=== PATIENT | female | born 1935 | race Caucasian/White ===

== ENCOUNTER → 2016-07-13 | Outpatient (CLI) | payer OTHER ==
[2016-07-13 12:19] LABS: BASO % 1.8 %; BASO ABS # 0.12 K/uL (0-0.2); COMPLETE YES; EOS % 3.2 %; HEMATOCRIT 48.5 % (37-47); IG% 0.2 %; LYMPH % 34.1 %; LYMPH ABS # 2.21 K/uL (1.2-3.4); MEAN CELL VOLUME 94.9 fL (80-100); MEAN CORPUSCULAR HEMOGLOBIN 31.1 pg (25-34); MEAN CORPUSCULAR HGB CONC 32.8 g/dl (32-36); MEAN PLATELET VOLUME 10.6 fL (7.4-10.4); MONO % 8.5 %; NEUT % 52.2 %; PLATELET COUNT 238 K/uL (130-400); RED BLOOD COUNT 5.11 M/uL (4.2-5.4); WHITE BLOOD COUNT 6.49 K/uL (4.8-10.8)
[2016-07-13 12:21] LABS: CHLORIDE 107 mmol/L (98-107); POTASSIUM 4.8 mmol/L (3.5-5.1); SODIUM 142 mmol/L (136-145)
[2016-07-13 12:33] LABS: URINE APPEARANCE CLEAR (CLEAR); URINE BILIRUBIN NEG (NEG); URINE COLOR YELLOW; URINE NITRITE NEG (NEG); URINE SPECIFIC GRAVITY 1.012 (1.000-1.030); UROBILINOGEN NEG (NEG); ZZUR CULT IF INDIC CLEAN CATCH NO
[2016-07-13 12:39] LABS: MANUAL MICROSCOPIC REQUIRED? NO; REVIEW REQ? NO
[2016-07-13 13:06] LABS: ALT/SGPT 31 U/L (12-78); AST/SGOT 20 U/L (15-37); BLOOD UREA NITROGEN 12 mg/dl (7-18); BUN/CREATININE RATIO 18.2 (10-20); CALCIUM 10.2 mg/dl (8.5-10.1); CARBON DIOXIDE 29 mmol/L (21-32); CHOLESTEROL 182 mg/dl (0-200); CREATININE 0.67 mg/dl (0.60-1.20); GLUCOSE 102 mg/dl (70-99)
[2016-07-13 13:12] LABS: ALKALINE PHOSPHATASE 68 U/L (45-117); CHOLESTEROL/HDL RATIO 2.2; HDL CHOLESTEROL 84 mg/dl; LDL CHOLESTEROL CALCULATED 77 mg/dl; TRIGLYCERIDES 105 mg/dl (0-150); VERY LOW DENSITY LIPOPROT CALC 21 mg/dl
[2016-07-13 13:17] LABS: ESTIMATED AVERAGE GLUCOSE 108 mg/dl; HA1C FLAG Normal (Normal)
--- NOTE | 2016-07-18 08:29 | CODING QUERY MEDICAL NECESSITY ---
SUPPORTING DIAGNOSIS NEEDED Dr. Massey, A supporting diagnosis is required for the test/procedure performed on this patient in order for us to be reimbursed by the patient's insurance. Please provide a supporting diagnosis for the following test/procedure listed below next to the test name along with your signature. *If there is no additional diagnosis for this patient that would support the following test/procedure please document that below next to the test/procedure. Test(s)/Procedure(s) that require a supporting diagnosis: * [id number] GLYCATED HEMOGLOBIN DIAGNOSIS: DATE OF SERVICE: 07/13/16 Provider Signature: Date: Thank you Alex[facility] Information Management Once completed, please kindly fax back to [phone] For questions please call [phone]
== END | disposition home or self-care (01) ==
LOC: C.LABBFT 07:44
PROVIDERS: ATTEND Internal Medicine
DX: R73.03 Prediabetes (principal); E78.5 Hyperlipidemia, unspecified

== ENCOUNTER → 2017-07-25 | Outpatient (CLI) | payer OTHER ==
[2017-07-25 12:50] LABS: BASO % 2.1 %; BASO ABS # 0.12 K/uL (0-0.2); EOS % 4.1 %; EOS ABS # 0.23 K/uL (0-0.5); HEMATOCRIT 46.7 % (37-47); HEMOGLOBIN 15.5 g/dL (12.0-16.0); IG# 0.01 K/uL (0.00-0.02); LYMPH % 31.8 %; MEAN CELL VOLUME 94.7 fL (80-100); MEAN CORPUSCULAR HEMOGLOBIN 31.4 pg (25-34); MEAN CORPUSCULAR HGB CONC 33.2 g/dl (32-36); MEAN PLATELET VOLUME 10.1 fL (7.4-10.4); MONO % 7.1 %; NEUT % 54.7 %; PLATELET COUNT 213 K/uL (130-400); RED CELL DISTRIBUTION WIDTH CV 12.7 % (11.5-14.5); RED CELL DISTRIBUTION WIDTH SD 44.1 fL (36.4-46.3); WHITE BLOOD COUNT 5.66 K/uL (4.8-10.8)
[2017-07-25 13:33] LABS: HEMOGLOBIN A1C 5.3 % (4.5-5.6)
[2017-07-25 15:20] LABS: BLOOD UREA NITROGEN 11 mg/dl (7-18); CALCIUM 9.4 mg/dl (8.5-10.1); CARBON DIOXIDE 30 mmol/L (21-32); CHOLESTEROL 165 mg/dl (0-200); GLUCOSE 102 mg/dl (70-99); POTASSIUM 4.3 mmol/L (3.5-5.1); SODIUM 141 mmol/L (136-145)
[2017-07-25 15:30] LABS: LDL CHOLESTEROL CALCULATED 67 mg/dl
== END | disposition home or self-care (01) ==
LOC: C.LABBFT 07:58
PROVIDERS: ATTEND Internal Medicine
DX: R73.03 Prediabetes (principal); E78.5 Hyperlipidemia, unspecified; M81.0 Age-related osteoporosis without current pathological fracture

== ENCOUNTER 2022-03-05 09:41 | Inpatient (IN) ==
[2022-03-05] MEDS ORDERED: SODIUM CHLORIDE 0.9% 1000ML 1,000 ML IV SCH (10:30)
[2022-03-05 10:45] LABS: Basophils # (auto) 0.01 K/uL (0-0.2); Basophils % (auto) 0.1 %; Hematocrit (blood only) 43.9 % (34.1-44.9); Hemoglobin 14.8 g/dl (12.0-16.0); Immature Granulocytes # (auto) 0.08 K/uL (0.00-0.02); Immature Granulocytes % (auto) 0.6 %; Lymphocytes # (auto) 0.74 K/uL (1.2-3.4); Lymphocytes % (auto) 5.2 %; Mean Corpuscular Hemoglobin 31.6 pg (25.0-34.0); Mean Corpuscular Hgb Conc 33.7 g/dL (32.0-36.0); Mean Corpuscular Volume 93.8 fL (80.0-100.0); Mean Platelet Volume 10.3 fL (9.4-12.3); Monocytes # (auto) 1.35 K/uL (0.24-0.82); Monocytes % (auto) 9.5 %; Neutrophils # (auto) 12.08 K/uL (1.4-6.5); Neutrophils % (auto) 84.6 %; Platelet Count 217 K/uL (130-400); RDW Coefficient of Variation 12.5 % (11.5-14.5); RDW Standard Deviation 43.2 fL (36.4-46.3); Red Blood Count 4.68 M/uL (3.93-5.22); White Blood Count 14.26 K/ul (4.8-10.8)
[2022-03-05 10:57] LABS: Albumin Globulin Ratio 1.1 (0.9-2); Albumin Level 3.9 gm/dl (3.4-5.0); Bilirubin,Total 1.2 mg/dl (0.2-1.0); Calcium 11.6 mg/dl (8.5-10.1); Creatinine Clr Calc Pharmacy 58.4 ml/min; Est GFR (Non-African American) 83.7 ml/min; Globulin 3.6 gm/dl (2.5-4.0); Potassium 3.5 mmol/L (3.5-5.1); Total Protein 7.5 gm/dl (6.0-8.3)
--- NOTE | 2022-03-05 11:01 | CT Scan Report ---
CT head/brain wo con CLINICAL HISTORY: ams Technique: Contiguous axial CT images of the head were acquired from the base of the skull to the juan antonio nicholas without intravenous contrast administration. Images were viewed in brain, subdural and bone [facility]. Automated dose lowering techniques and/or adjustment according to patient size were utilized for this exam. Comparison: Comparison is made to CT head 07/10/2012 Findings: Areas of decreased attenuation are present in the periventricular and subcortical white matter bilate rally consistent with small vessel ischemic disease. Generalized cerebral atrophy with commensurate e nlargement of the ventricles, sulci, and cisterns is also present. There is no acute intracranial hem orrhage or evidence of acute territorial infarction. No shift of the midline structures, mass effect, or extra-axial abnormalities are shown. Atherosclerotic calcifications are present in the intracran ial segments of the internal carotid arteries. Imaged portions of the paranasal sinuses and mastoid air cells are clear. The orbits appear normal. There are no acute fractures of the calvaria or scalp swelling. Impression: No acute intracranial hemorrhage, no evidence of acute territorial infarction or other acute intracra nial disease process. ACT 112: Negative or not required by law. Electronically signed by: Tyrone Stewart M.D. 03/05/2022 10:58 AM
[2022-03-05 11:05] LABS: Partial Thromboplastin Ratio 0.9; Partial Thromboplastin Time 24.2 Seconds (21.0-31.0); Prothrombin Time 10.3 Seconds (9.0-12.0)
[2022-03-05 11:22] LABS: Influenza A virus by PCR Negative (Neg); Influenza B virus by PCR Negative (Neg); RSV by PCR Negative (Neg); SARS CoV2 RNA(COVID-19) Ceph NEGATIVE (Negative)
--- NOTE | 2022-03-05 11:30 | XRay Report ---
XR chest 1V portable CLINICAL HISTORY: fall, pain TECHNIQUE: Single frontal radiograph of the chest was obtained. Comparison: None available at the time of this dictation. FINDINGS: No lines and tubes are seen. Cardiomegaly is noted. Bibasilar midline shift is seen. Airspace opaciti es in the left lower lung. There is likely left hemidiaphragmatic elevation. No evidence of pleural e ffusion or pneumothorax. IMPRESSION: Elevation of the left hemidiaphragm with likely associated atelectasis. Cardiomegaly is seen. ACT 112: Negative or not required by law. Electronically signed by: Tyrone Stewart M.D. 03/05/2022 11:28 AM
--- NOTE | 2022-03-05 11:36 | XRay Report ---
XR hip LT 2V w pelvis CLINICAL HISTORY: pain fall TECHNIQUE: 2 views of the left hip and single frontal view of the pelvis were obtained. Comparison: None available at the time of this dictation. FINDINGS: There is a fracture of the left femoral neck with mild overriding of fragments. Degenerative changes are seen in the hip joint. Soft tissue swelling is seen. IMPRESSION: Fracture of the left femoral neck with surrounding soft tissue swelling. ACT 112: Negative or not required by law. Electronically signed by: Tyrone Stewart M.D. 03/05/2022 11:34 AM
[2022-03-05 12:00] LABS: Appearance Urine Clear (Clear); Bacteria Urine Automated Negative (Negative); Bilirubin Urine Negative (Negative); Blood Urine Negative (Negative); Cast Urine Automated 0 /lpf (0-5); Color Urine Yellow; Glucose Urine UA Trace (Negative); Ketones Urine 1+ (Negative); Leukocyte Esterase Urine Negative (Negative); Nitrite Urine Negative (Negative); Protein Urine 1+ (Negative); RBC Urine Automated 0-4 /hpf (0-4); Specific Gravity Urine 1.017 (1.000-1.030); Urobilinogen Urine Negative (Negative); WBC Urine Automated 0 /hpf (0-5); pH Urine 6.5 (4.5-7.5)
[2022-03-05] MEDS ORDERED: ACETAMINOPHEN 1,000 MG/100 ML VIAL IV STA (12:09)
--- NOTE | 2022-03-05 12:39 | History & Physical Report ---
Date of Service March 05, 2022 Assessment & Plan (1) Fracture of femoral neck, left: Plan: Patient has a comminuted left femoral neck fracture. Patient will be evaluated Dr. Bryant. I personally spoke with Dr. Bryant he feels the patient may not be able to get onto the OR schedule till March 07. Patient will have pain control with Tylenol scheduled she will be offered morphine and oxycodone if pain is severe she will be on vitamin D to be kept n.p.o. at midnight March 06 for possible surgical correction of her fracture SCDs for DVT prevention SAMMI hose to be applied Patient does have leukocytosis and this may be stress related but will check a urine culture she denies any urinary symptoms on presentation and a urine analysis is not significantly abnormal (2) Heart murmur: Plan: Heart murmur noted in PCP note echocardiogram from October 11, 2021 shows mild mitral regurg preserved ejection fraction Given the patient was shoveling snow prior to this event denies any chest pain or shortness of breath I do believe she is got good functional status and should be risk optimized for surgery (3) Dyslipidemia: Plan: Patient is on Zocor this is held during her hospital stay History of Present Illness Primary Care Provider: Mason Massey MD 87-year-old female who reportedly shoveled her walker in driveway then walked around to the back of her house to check how much that was on her patio at which time she turned and slipped on the ice and fell striking her left side on the ground. She sustained a left femoral neck fracture. She denies having any presyncopal symptoms or hitting her head. She did have a CT scan of her head which was unremarkable. Family is at the bedside and says that she has been saying something is may be exhibiting some mild confusion which is unusual for her. There is no contusions on her head although a concussion cannot be ruled out if it was a violent fall. She does have a concentrated urine initial urine analysis is not suspicious of a UTI though she does have a white count of 14,000 and a urine culture will be sent In the ER she is negative for viral illnesses she is not anemic she does have mild elevation of her calcium although this is not usual by her history subsequently this may be dehydration or could be possibly causing some of her confusion. We will hydrate her and see what her calcium is on recheck Allergies Allergy/AdvReac Type Severity Reaction Status Date / Time No Known Drug Allergies Allergy Verified 11/04/21 09:04 Home Medications Medication Instructions Recorded Confirmed Type cholecalciferol (vitamin D3) 50 2,000 unit PO QDD 07/31/18 11/04/21 History mcg (2,000 unit) capsule glucosamine sulfate 500 mg capsule 500 mg PO QAM 07/31/18 11/04/21 History omega-3 acid ethyl esters 1 gram 1 cap PO BID 07/31/18 11/04/21 History capsule aspirin 81 mg tablet,delayed 81 mg PO QAM 04/23/19 11/04/21 History release (Luis A Low Dose Aspirin) carboxymethylcellulose sodium 0.25 1 drp ophthalmic (eye) BID 04/23/19 11/04/21 History % eye drops in a dropperette (TheraTears) multivitamin 1 tab PO QAM 04/23/19 11/04/21 History plant stanol janine 450 mg tablet 450 mg PO QDD 04/23/19 11/04/21 History (Cholest Off) vit C 250 mg-vit E 90 mg-zinc 40 1 tab PO BID 04/23/19 11/04/21 History mg-copper 1 be-enuzbw-qkhaoc capsule (PreserVision AREDS-2) simvastatin 20 mg tablet 20 mg PO HS #90 tabs 05/21/21 11/04/21 Rx Past Med/Surg History Medical History Dyslipidemia Osteoporosis Pre-diabetes Surgical History History of left cataract surgery History of tonsillectomy Hx of removal of cyst Family History Coronary heart disease Mother Heart disease Mother Myocardial infarction Mother Breast cancer Mother Hypertension Mother Denies family history of Ovarian cancer Prostate cancer Diabetes Lung cancer Colorectal cancer Social History Smoking Status: Never smoker Second Hand Exposure: No; Hx Alcohol Use: No Hx Substance Use: No Preferred Language: Slovak Communication Ability: Effective Visual Impairment: No Limitations Hearing Ability: Normal Beliefs That Will Affect Care: None marital status: / Current Living Situation: Alone current occupational status: retired current occupation: used to be food checkers and cashiers supervisor at [employer] Feels Safe at Home: Yes Childhood Exposure to Second-Hand Smoke: Yes caffeine: Yes during the past year weight has: remained stable Dental Care, Regularly: Yes Physical Activity Frequency: Daily Seatbelt Use: always Sunscreen Use: Yes Assistive Devices: Denture - Upper and Glasses Review of Systems Review of Systems: Moderate distress and fatigue no headache, no visual changes no speech or swallowing issues no chest pain, pressure or palpitations no shortness of breath, cough or wheezes no abdominal pain, nausea or vomiting, diarrhea or constipation no dysuria, hematuria or frequency Left hip pain shortening and external rotation no back pain, CVA tenderness or radicular pain no bruising, bleeding or rashes no focal signs of weakness or numbness or altered sensation no complaints of anxiety or depression.. Physical Exam Physical Exam: The patient appeared well nourished and normally developed. Vital signs as documented. Head exam is normocephalic atraumatic there is no contusions abrasions Neck is without JVD, thyromegaly, or carotid bruits. Lungs are clear to auscultation, no focal loss of breath sounds Cardiac exam, Rhythm is regular.. No murmurs, rubs or gallops. Abdominal exam reveals normal bowel sounds, soft non tender, no masses Extremities are nonedematous and both pedal pulses are present Left leg is shortened and externally rotated painful to move point tenderness in the left hip Neurologic exam is alert and oriented x3 although family says she is saying some nonsensical statements at times, no focal loss of strength or sensation although affected limb was not tested aggressively Skin is without bruises or rashes Psychologically is without concerns for anxiety or depression. Orientation is intact to my evaluation. Results & Data Results & Data ([facility]) Vital Signs (Past 12 Hours) Vital Signs Temp Pulse Resp BP Pulse Ox O2 Del Method 03/05/22 11:30 108 H 23 03/05/22 11:30 142/93 H 03/05/22 11:00 78 18 90 03/05/22 11:00 147/83 H 03/05/22 10:48 102 H 22 92 03/05/22 10:48 148/103 H 03/05/22 10:30 111 H 22 03/05/22 10:00 103 H 21 03/05/22 09:51 107 H 20 03/05/22 09:53 98.1 F 110 H 18 181/118 H 94 Room Air Diagnostic Findings Hip/Pelvis X-Ray 03/05/22 10:28 XR hip LT 2V w pelvis CLINICAL HISTORY: pain fall TECHNIQUE: 2 views of the left hip and single frontal view of the pelvis were obtained. Comparison: None available at the time of this dictation. FINDINGS: There is a fracture of the left femoral neck with mild overriding of fragments. Degenerative changes are seen in the hip joint. Soft tissue swelling is seen. IMPRESSION: Fracture of the left femoral neck with surrounding soft tissue swelling. ACT 112: Negative or not required by law. Electronically signed by: Tyrone Stewart M.D. 03/05/2022 11:34 AM Chest X-Ray 03/05/22 10:30 XR chest 1V portable CLINICAL HISTORY: fall, pain TECHNIQUE: Single frontal radiograph of the chest was obtained. Comparison: None available at the time of this dictation. FINDINGS: No lines and tubes are seen. Cardiomegaly is noted. Bibasilar midline shift is seen. Airspace opacities in the left lower lung. There is likely left hemidiaphragmatic elevation. No evidence of pleural effusion or pneumothorax. IMPRESSION: Elevation of the left hemidiaphragm with likely associated atelectasis. Cardiomegaly is seen. ACT 112: Negative or not required by law. Electronically signed by: Tyrone Stewart M.D. 03/05/2022 11:[address] 03/05/22 10:30 CT head/brain wo con CLINICAL HISTORY: ams Technique: Contiguous axial CT images of the head were acquired from the base of the skull to the vertex without intravenous contrast administration. Images were viewed in brain, subdural and bone windows. Automated dose lowering techniques and/or adjustment according to patient size were utilized for this exam. Comparison: Comparison is made to CT head 07/10/2012 Findings: Areas of decreased attenuation are present in the periventricular and subcortical white matter bilaterally consistent with small vessel ischemic disease. Generalized cerebral atrophy with commensurate enlargement of the ventricles, sulci, and cisterns is also present. There is no acute intracranial hemorrhage or evidence of acute territorial infarction. No shift of the midline structures, mass effect, or extra-axial abnormalities are shown. Atherosclerotic calcifications are present in the intracranial segments of the internal carotid arteries. Imaged portions of the paranasal sinuses and mastoid air cells are clear. The orbits appear normal. There are no acute fractures of the calvaria or scalp swelling. Impression: No acute intracranial hemorrhage, no evidence of acute territorial infarction or other acute intracranial disease process. ACT 112: Negative or not required by law. Electronically signed by: Tyrone Stewart M.D. 03/05/2022 10:58 AM ECG Additional Comments: EKG shows sinus tachycardia PG Care Time/CCT Total # of Minutes Spent Total Time Spent with Patient: Total time spent is greater than 50% in coordination of care (as documented) at patient's floor/unit and/or counseling patient: Coding Level of Care Code 02505 Initial Inpt Care Lvl 3 Diagnoses Fracture of femoral neck, left S72.002A Heart murmur R01.1 Dyslipidemia E78.5
--- NOTE | 2022-03-05 13:00 | Electrocardiogram Report ---
Test Reason : Blood Pressure : / mmHG Vent. Rate : 106 BPM Atrial Rate : 106 BPM P-R Int : 152 ms QRS Dur : 082 ms QT Int : 294 ms P-R-T Axes : 070 -23 057 degrees QTc Int : 390 ms Poor data quality, interpretation may be adversely affected Sinus tachycardia with Premature atrial complexes Abnormal ECG No previous ECGs available Confirmed by Orlando Harman ([id number]) on 03/05/2022 1:00:05 PM Referred By: REFERRED SELF Confirmed By:Orlando Harman
[2022-03-05] MEDS ORDERED: oxyCODONE HCL IR 5 MG TAB (IMMEDIATE RELEASE) PO PRN (14:55)
[2022-03-05] MEDS ORDERED: MoRPHine SULFATE 4 MG/ML 1 ML CARP\\VIAL IV PRN (14:55)
[2022-03-05] MEDS ORDERED: MoRPHine SULFATE 2 MG/ML CARP IV PRN (14:55)
[2022-03-05] MEDS: SODIUM CHLORIDE 0.9% 1000ML 1,000 ML IV SCH ×2 (16:45→23:17)
[2022-03-05] MEDS: ACETAMINOPHEN 500 MG TAB PO SCH ×2 (16:45→21:09)
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
[2022-03-05] MEDS ORDERED: NON-FORMULARY MEDICATION (Vit C,E-Zn-Coppr-Lutein-Zeaxan [Preservision Areds-2] 250-200-40 PO SCH (21:00)
[2022-03-05] MEDS: ARTIFICIAL TEARS OP SCH (21:09)
[2022-03-06 07:19] LABS: Albumin Globulin Ratio 1.1 (0.9-2); Albumin Level 3.2 gm/dl (3.4-5.0); BUN Creatinine Ratio 43.8 (10-20); Calcium 10.5 mg/dl (8.5-10.1); Creatinine Clr Calc Pharmacy 65.7 ml/min; Est GFR (African American) 100.8 ml/min; Globulin 2.8 gm/dl (2.5-4.0); Potassium 3.7 mmol/L (3.5-5.1)
[2022-03-06] MEDS ORDERED: CHOLECALCIFEROL 400 UNITS 10 MCG TAB PO SCH (09:00)
[2022-03-06] MEDS: ACETAMINOPHEN 500 MG TAB PO SCH ×3 (09:08→20:21)
[2022-03-06] MEDS: ARTIFICIAL TEARS OP SCH ×2 (09:09→20:21)
[2022-03-06] MEDS: SODIUM CHLORIDE 0.9% 1000ML 1,000 ML IV SCH ×2 (09:25→19:12)
[2022-03-06 10:40] LABS: Phosphorus 1.4 mg/dl (2.5-4.9)
[2022-03-06] MEDS: MULTIVITAMIN TAB PO SCH (10:42)
--- NOTE | 2022-03-06 11:07 | Communication Note ---
Date of Service: March 06, 2022 Pt imaging reviewed, has a displaced left femoral neck fracture. Pt booked for Left hip hemiarthroplasty on 03/07 am. NPO after MN on 03/06.
--- NOTE | 2022-03-06 12:12 | Orthopedic Consultation ---
Date of Consultation March 06, 2022 Assessment & Plan (1) Fracture of femoral neck, left: Patient has a displaced left femoral neck fracture. Treatment options discussed with the patient. Case discussed with Dr. Bryant who personally reviewed patient's imaging. Recommend surgical intervention. Risk, benefits, alternatives to surgery discussed with the patient and she would like to proceed. Plan for left hip bipolar hemiarthroplasty by Dr. Bryant of [facility]. He will be seeing the patient as well prior to surgical intervention. Plan for OR tomorrow morning. Patient will be n.p.o. after midnight. Thank you for this consultation. History of Present Illness Reason for Consultation: Left femoral neck fracture Requesting Physician: Dr. Gonzales Attending Physician: Lb Hall History of Present Illness Pleasant 87-year-old female past medical history significant for osteoporosis, dyslipidemia, mild mitral valve regurgitation who slipped and fell on her patio landing on her left side. She presented to the emergency department via ambulance and was found to have a displaced left femoral neck fracture. We have been asked to evaluate the patient for surgical management. Patient denies chest pain, shortness of breath, dizziness/lightheadedness, headaches, nausea/vomiting/diarrhea. Pain is currently well controlled. Allergies Allergy/AdvReac Type Severity Reaction Status Date / Time No Known Drug Allergies Allergy Verified 11/04/21 09:04 Home Medications Medication Instructions Recorded Confirmed Type cholecalciferol (vitamin D3) 50 2,000 unit PO QDD 07/31/18 11/04/21 History mcg (2,000 unit) capsule glucosamine sulfate 500 mg capsule 500 mg PO QAM 07/31/18 11/04/21 History omega-3 acid ethyl esters 1 gram 1 cap PO BID 07/31/18 11/04/21 History capsule aspirin 81 mg tablet,delayed 81 mg PO QAM 04/23/19 11/04/21 History release (Luis A Low Dose Aspirin) carboxymethylcellulose sodium 0.25 1 drp ophthalmic (eye) BID 04/23/19 11/04/21 History % eye drops in a dropperette (TheraTears) multivitamin 1 tab PO QAM 04/23/19 11/04/21 History plant stanol janine 450 mg tablet 450 mg PO QDD 04/23/19 11/04/21 History (Cholest Off) vit C 250 mg-vit E 90 mg-zinc 40 1 tab PO BID 04/23/19 11/04/21 History mg-copper 1 [id number] capsule (PreserVision AREDS-2) simvastatin 20 mg tablet 20 mg PO HS #90 tabs 05/21/21 11/04/21 Rx Patient History Medical History Dyslipidemia Osteoporosis Pre-diabetes Surgical History History of left cataract surgery History of tonsillectomy Hx of removal of cyst RIGHT ARM Family History Mother Coronary heart disease Breast cancer Myocardial infarction Heart disease Hypertension Denies family history of Ovarian cancer Prostate cancer Diabetes Lung cancer Colorectal cancer Social History Smoking Status: Never smoker Second Hand Exposure: No; Do You Dip or Chew Tobacco: No; Tobacco Cessation Education Requested by Patient: No Hx Alcohol Use: No Hx Substance Use: No Preferred Language: Telugu Communication Ability: Effective Visual Impairment: No Limitations Hearing Ability: Normal Fish Dressing Machine Feeder Required: No Beliefs That Will Affect Care: None marital status: / Current Living Situation: Alone current occupational status: retired current occupation: used to be network intern at [employer] Other Information That Helps Us Care for You: No Feels Safe at Home: Yes Safety Concerns: Feels Safe At This Time Childhood Exposure to Second-Hand Smoke: Yes caffeine: Yes during the past year weight has: remained stable Dental Care, Regularly: Yes Physical Activity Frequency: Daily Seatbelt Use: always Sunscreen Use: Yes Assistive Devices: Denture - Upper and Glasses Review of Systems Review of Systems: All systems reviewed & are unremarkable except as noted in HPI & below Physical Exam Constitutional: WD/WN, vitals as above Eyes: PERRL, conjunctivae normal, anicteric sclerae Neck: trachea midline, no thyromegaly Respiratory: normal respiratory effort; no respiratory distress Cardiovascular: Rate/Rhythm: regular rate and regular rhythm Extremities: no edema Musculoskeletal: Left leg: Leg is shortened and externally rotated. Her toes are mobile with sensation and neurovascular status intact distally. No calf tenderness. No tenderness about her knee. No pain with gentle knee range of motion. She does have pain with gentle logroll. Compartments are soft and compressible, nontender. Mild tenderness overlying proximal femur. She has mild bruising anterior medial thigh. Skin: no rashes, warm and dry Neurologic: normal touch/pain/proprioception Psychiatric: A+Ox3, euthymic affect Results & Data ([facility]) Vital Signs (Past 12 Hours) Vital Signs Temp Pulse Resp BP Pulse Ox O2 Del Method 03/06/22 08:02 37.0 C 98 H 16 152/73 H 90 Room Air 03/06/22 02:18 37.2 C 100 H 18 131/77 90 Room Air 03/06/22 01:16 36.9 C 102 H 20 128/69 90 Room Air Laboratory Results Lab Results 03/05/22 03/05/22 03/05/22 Range/Units 10:10 10:10 10:10 WBC 14.26 H (4.8-10.8) K/ul RBC 4.68 (3.93-5.22) M/uL Hgb 14.8 (12.0-16.0) g/dl Hct 43.9 (34.1-44.9) % MCV 93.8 (80.0-100.0) fL MCH 31.6 (25.0-34.0) pg MCHC 33.7 (32.0-36.0) g/dL RDW Std Deviation 43.2 (36.4-46.3) fL RDW Coeff of Aiyana 12.5 (11.5-14.5) % Plt Count 217 (130-400) K/uL MPV 10.3 (9.4-12.3) fL Immature Gran % (Auto) 0.6 % Neut % (Auto) 84.6 % Lymph % (Auto) 5.2 % [place] % (Auto) 9.5 % Eos % (Auto) 0.0 % Baso % (Auto) 0.1 % Neut # (Auto) 12.08 H (1.4-6.5) K/uL Lymph # (Auto) 0.74 L (1.2-3.4) K/uL [place] # (Auto) 1.35 H (0.24-0.82) K/uL Eos # (Auto) 0.00 (0-0.50) K/uL Baso # (Auto) 0.01 (0-0.2) K/uL Immature Gran # (Auto) 0.08 H (0.00-0.02) K/uL PT 10.3 (9.0-12.0) Seconds INR 1.0 (0.9-1.1) APTT 24.2 (21.0-31.0) Seconds PTT Ratio 0.9 Sodium 143 (136-145) mmol/L Potassium 3.5 (3.5-5.1) mmol/L Chloride 104 (98-107) mmol/L Carbon Dioxide 29 (21-32) mmol/L Anion Gap 10 (3-11) BUN 20 (6-23) mg/dl Creatinine 0.54 L (0.6-1.2) mg/dl Est Cr Clr Drug Dosing 58.4 ml/min Est GFR ( Amer) 97.0 ml/min Est GFR (Non-Af Amer) 83.7 ml/min BUN/Creatinine Ratio 37.0 H (10-20) Glucose 164 H (70-99(Fasting)) mg/dl Calcium 11.6 H (8.5-10.1) mg/dl Phosphorus (2.5-4.9) mg/dl Total Bilirubin 1.2 H (0.2-1.0) mg/dl AST 76 H (13-39) U/L ALT 46 (7-52) U/L Alkaline Phosphatase 85 (34-104) U/L Total Creatine Kinase 1168 H (26-192) U/L Total Protein 7.5 (6.0-8.3) gm/dl Albumin 3.9 (3.4-5.0) gm/dl Globulin 3.6 (2.5-4.0) gm/dl Albumin/Globulin Ratio 1.1 (0.9-2) PTH Intact (12.0-88.0) pg/ml Urine Color Urine Appearance (Clear) Urine pH (4.5-7.5) Ur Specific Felt (1.000-1.030) Urine Protein (Negative) Urine Glucose (UA) (Negative) Urine Ketones (Negative) Urine Blood (Negative) Urine Nitrite (Negative) Urine Bilirubin (Negative) Urine Urobilinogen (Negative) Ur Leukocyte Esterase (Negative) Urine WBC (Auto) (0-5) /hpf Urine RBC (Auto) (0-4) /hpf U Hyaline Cast (Auto) (0-5) /lpf U Epithel Cells (Auto) (0-5) /lpf Urine Bacteria (Auto) (Negative) SARS-CoV-2 (PCR) (Negative) Influenza Type A (PCR) (Neg) Influenza Type B (PCR) (Neg) RSV (RT-PCR) (Neg) 03/05/22 03/05/22 03/06/22 Range/Units 10:35 11:40 06:44 WBC (4.8-10.8) K/ul RBC (3.93-5.22) M/uL Hgb (12.0-16.0) g/dl Hct (34.1-44.9) % MCV (80.0-100.0) fL MCH (25.0-34.0) pg MCHC (32.0-36.0) g/dL RDW Std Deviation (36.4-46.3) fL RDW Coeff of Aiyana (11.5-14.5) % Plt Count (130-400) K/uL MPV (9.4-12.3) fL Immature Gran % (Auto) % Neut % (Auto) % Lymph % (Auto) % [place] % (Auto) % Eos % (Auto) % Baso % (Auto) % Neut # (Auto) (1.4-6.5) K/uL Lymph # (Auto) (1.2-3.4) K/uL [place] # (Auto) (0.24-0.82) K/uL Eos # (Auto) (0-0.50) K/uL Baso # (Auto) (0-0.2) K/uL Immature Gran # (Auto) (0.00-0.02) K/uL PT (9.0-12.0) Seconds INR (0.9-1.1) APTT (21.0-31.0) Seconds PTT Ratio Sodium 141 (136-145) mmol/L Potassium 3.7 (3.5-5.1) mmol/L Chloride 108 H (98-107) mmol/L Carbon Dioxide 30 (21-32) mmol/L Anion Gap 3 (3-11) BUN 21 (6-23) mg/dl Creatinine 0.48 L (0.6-1.2) mg/dl Est Cr Clr Drug Dosing 65.7 ml/min Est GFR ( Amer) 100.8 ml/min Est GFR (Non-Af Amer) 87.0 ml/min BUN/Creatinine Ratio 43.8 H (10-20) Glucose 120 H (70-99(Fasting)) mg/dl Calcium 10.5 H (8.5-10.1) mg/dl Phosphorus (2.5-4.9) mg/dl Total Bilirubin 1.0 (0.2-1.0) mg/dl AST 48 H (13-39) U/L ALT 37 (7-52) U/L Alkaline Phosphatase 63 (34-104) U/L Total Creatine Kinase (26-192) U/L Total Protein 6.0 (6.0-8.3) gm/dl Albumin 3.2 L (3.4-5.0) gm/dl Globulin 2.8 (2.5-4.0) gm/dl Albumin/Globulin Ratio 1.1 (0.9-2) PTH Intact (12.0-88.0) pg/ml Urine Color Yellow Urine Appearance Clear (Clear) Urine pH 6.5 (4.5-7.5) Ur Specific Felt 1.017 (1.000-1.030) Urine Protein 1+ H (Negative) Urine Glucose (UA) Trace H (Negative) Urine Ketones 1+ H (Negative) Urine Blood Negative (Negative) Urine Nitrite Negative (Negative) Urine Bilirubin Negative (Negative) Urine Urobilinogen Negative (Negative) Ur Leukocyte Esterase Negative (Negative) Urine WBC (Auto) 0 (0-5) /hpf Urine RBC (Auto) 0-4 (0-4) /hpf U Hyaline Cast (Auto) 0 (0-5) /lpf U Epithel Cells (Auto) 5-10 H (0-5) /lpf Urine Bacteria (Auto) Negative (Negative) SARS-CoV-2 (PCR) NEGATIVE (Negative) Influenza Type A (PCR) Negative (Neg) Influenza Type B (PCR) Negative (Neg) RSV (RT-PCR) Negative (Neg) 03/06/22 03/06/22 Range/Units 09:58 09:58 WBC (4.8-10.8) K/ul RBC (3.93-5.22) M/uL Hgb (12.0-16.0) g/dl Hct (34.1-44.9) % MCV (80.0-100.0) fL MCH (25.0-34.0) pg MCHC (32.0-36.0) g/dL RDW Std Deviation (36.4-46.3) fL RDW Coeff of Aiyana (11.5-14.5) % Plt Count (130-400) K/uL MPV (9.4-12.3) fL Immature Gran % (Auto) % Neut % (Auto) % Lymph % (Auto) % [place] % (Auto) % Eos % (Auto) % Baso % (Auto) % Neut # (Auto) (1.4-6.5) K/uL Lymph # (Auto) (1.2-3.4) K/uL [place] # (Auto) (0.24-0.82) K/uL Eos # (Auto) (0-0.50) K/uL Baso # (Auto) (0-0.2) K/uL Immature Gran # (Auto) (0.00-0.02) K/uL PT (9.0-12.0) Seconds INR (0.9-1.1) APTT (21.0-31.0) Seconds PTT Ratio Sodium (136-145) mmol/L Potassium (3.5-5.1) mmol/L Chloride (98-107) mmol/L Carbon Dioxide (21-32) mmol/L Anion Gap (3-11) BUN (6-23) mg/dl Creatinine (0.6-1.2) mg/dl Est Cr Clr Drug Dosing ml/min Est GFR ( Amer) ml/min Est GFR (Non-Af Amer) ml/min BUN/Creatinine Ratio (10-20) Glucose (70-99(Fasting)) mg/dl Calcium (8.5-10.1) mg/dl Phosphorus 1.4 L* (2.5-4.9) mg/dl Total Bilirubin (0.2-1.0) mg/dl AST (13-39) U/L ALT (7-52) U/L Alkaline Phosphatase (34-104) U/L Total Creatine Kinase 458 H (26-192) U/L Total Protein (6.0-8.3) gm/dl Albumin (3.4-5.0) gm/dl Globulin (2.5-4.0) gm/dl Albumin/Globulin Ratio (0.9-2) PTH Intact 19.3 (12.0-88.0) pg/ml Urine Color Urine Appearance (Clear) Urine pH (4.5-7.5) Ur Specific Felt (1.000-1.030) Urine Protein (Negative) Urine Glucose (UA) (Negative) Urine Ketones (Negative) Urine Blood (Negative) Urine Nitrite (Negative) Urine Bilirubin (Negative) Urine Urobilinogen (Negative) Ur Leukocyte Esterase (Negative) Urine WBC (Auto) (0-5) /hpf Urine RBC (Auto) (0-4) /hpf U Hyaline Cast (Auto) (0-5) /lpf U Epithel Cells (Auto) (0-5) /lpf Urine Bacteria (Auto) (Negative) SARS-CoV-2 (PCR) (Negative) Influenza Type A (PCR) (Neg) Influenza Type B (PCR) (Neg) RSV (RT-PCR) (Neg) Diagnostic Findings XR hip LT 2V w pelvis CLINICAL HISTORY: pain fall TECHNIQUE: 2 views of the left hip and single frontal view of the pelvis were obtained. Comparison: None available at the time of this dictation. FINDINGS: There is a fracture of the left femoral neck with mild overriding of fragments. Degenerative changes are seen in the hip joint. Soft tissue swelling is seen. IMPRESSION: Fracture of the left femoral neck with surrounding soft tissue swelling. (1) Fracture of femoral neck, left Encounter type: initial encounter Fracture type: closed Qualified Code(s): S72.002A - Fracture of unspecified part of neck of left femur, initial encounter for closed fracture
[2022-03-06] MEDS: POT PHOSPHATE MONOBASIC W/ SOD TAB PO SCH ×3 (13:56→20:21)
--- NOTE | 2022-03-06 20:37 | Hospitalist Progress Note ---
Date of Service March 06, 2022 Assessment & Plan (1) Fracture of femoral neck, left: Plan: Certainly could be osteoporosis related. However, she has a very large breast mass on left worrisome for breast cancer and she could easily have bone mets. During surgery bone will be sent for pathology. Cont pain meds. Cont IVF. Bedrestaudie. Appreciate Dr Bryant's consultation. ORIF planned 03/07. NPO after MN tonight From cardiopulmonary standpoint is optimized. (2) Rhabdomyolysis: Plan: Mild, 2nd to fall. Cont IVF. Repeat ast/CPK in am. (3) Hypercalcemia: Plan: Presenting total calcium 11.6, now 10.5 s/p IV fluids. 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 Cont IV fluids. Hold vitamin D supplement. Intact PTH wnl. (4) Breast mass, left: Plan: highly suspicious for breast cancer uncertain if she would even want a biopsy she has not told her family about the mass I encouraged her to discuss this with her family (5) Dyslipidemia: Plan: holding statin due to mild rhabdo, etc (6) Pre-diabetes: Plan: resolved last a1c was 5.3% this summer (7) Vitamin D deficiency: Plan: resolved last 25-OH vit D level was 65 this past summer repeat level in am to ensure she is not toxic/high from the vitamin D supplement (8) Hypophosphatemia: Plan: since intact PTH level is normal this may be PTH-related peptide driven consider sending PTH-related peptide - hold for now start K-phos 1 QID recheck phos level in 48 hours (9) Mitral regurgitation: Plan: as seen on echo 10/2021 (10) DVT prophylaxis: Plan: SCDs for now if she indeed has breast cancer I would be in favor of either low-dose Xarelto, lovenox, etc rather than aspirin given high DVT risk Admission and Anticipated Discharge Date Admission Date: March 05, 2022 Subjective patient resting comfortably in bed c/o mild left hip pain she states she was on the ground since pm to Monday am denied pain in any other location staff mentioned to me that they had noted a left breast mass 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 it had been there for over a year or longer blamed it on "getting my COVID vaccine" she said she had not told her family nor her PCP she said "I'm 87, I figured I would just leave it alone" I asked if she would want a biopsy and she wasn't sure Review of Systems Review of Systems: gen - at least 20 pounds of unintentional weight loss cv - no cp, no orthopnea pulm - no dyspnea GI - no abd pain Physical Exam Physical Exam: gen - thin, NAD, pleasant mouth - MMM neck - no JVD chest - left breast - VERY LARGE breast mass superior quadrants, nipple distorted due to the mass, firm/hard to palpation; size - at least 3-4 inches in diameter heart - RRR, s1 s2, 1/6 BRIT LSB lungs - CTA b/l abd - soft, NT ND BS+ ext - left leg shortened and externally rotated; pulses 2+ b/l; no edema of ankles psych - a/o x 3 Results & Data Results & Data ([facility]) Vital Signs (Past 12 Hours) Vital Signs Temp Pulse Resp BP Pulse Ox O2 Del Method 03/06/22 15:21 37.0 C 87 16 145/74 H 90 Room Air Laboratory Results Laboratory Results - last 24 hr 03/06/22 03/06/22 03/06/22 06:44 09:58 09:58 Sodium 141 Potassium 3.7 Chloride 108 H Carbon Dioxide 30 Anion Gap 3 BUN 21 Creatinine 0.48 L Est Cr Clr Drug Dosing 65.7 Est GFR ( Amer) 100.8 Est GFR (Non-Af Amer) 87.0 BUN/Creatinine Ratio 43.8 H Glucose 120 H Calcium 10.5 H Phosphorus 1.4 L* Total Bilirubin 1.0 AST 48 H ALT 37 Alkaline Phosphatase 63 Total Creatine Kinase 458 H Total Protein 6.0 Albumin 3.2 L Globulin 2.8 Albumin/Globulin Ratio 1.1 PTH Intact 19.3 PG Care Time/CCT Total # of Minutes Spent Total Time Spent with Patient: Total time spent is greater than 50% in coordination of care (as documented) at patient's floor/unit and/or counseling patient: Coding Level of Care Code 10085 Subseq Hosp Care Lvl 3 Diagnoses Fracture of femoral neck, left S72.002A Encounter type: initial encounter Fracture type: closed Rhabdomyolysis T79.6XXA Encounter type: initial encounter Rhabdomyolysis type: traumatic Hypercalcemia E83.52 Breast mass, left N63.20 Dyslipidemia E78.5 Pre-diabetes R73.03 Vitamin D deficiency E55.9 Hypophosphatemia E83.39 Mitral regurgitation I34.0 DVT prophylaxis Z29.9 (1) Fracture of femoral neck, left Encounter type: initial encounter Fracture type: closed Qualified Code(s): S72.002A - Fracture of unspecified part of neck of left femur, initial encounter for closed fracture (2) Rhabdomyolysis Encounter type: initial encounter Rhabdomyolysis type: traumatic Qualified Code(s): T79.6XXA - Traumatic ischemia of muscle, initial encounter
[2022-03-07] MEDS: SODIUM CHLORIDE 0.9% 1000ML 1,000 ML IV SCH ×4 (05:04→22:46)
[2022-03-07] MEDS ORDERED: fentaNYL citrate 100 MCG/2 ML VIAL ONE (06:49)
[2022-03-07] MEDS ORDERED: PROPOFOL IV EMULSION 10 MG/ML 20 ML VIAL IV ONE ×2 (06:49→08:19)
[2022-03-07] MEDS ORDERED: LIDOCAINE 2% MPF LOCAL 5 ML VIAL INFIL ONE (06:50)
[2022-03-07] MEDS ORDERED: ceFAZolin 330 MG/ML 1 GM VIAL ONE (07:05)
[2022-03-07] MEDS ORDERED: ePHEDrine sulfate 50 MG/ML AMP IV PRN (07:10)
[2022-03-07] MEDS ORDERED: fentaNYL citrate 100 MCG/2 ML VIAL IV PRN (07:10)
[2022-03-07] MEDS ORDERED: ATROPINE SULFATE 0.1 MG/ML 10ML SYR IV PRN (07:10)
[2022-03-07] MEDS ORDERED: ONDANSETRON INJ 2 MG/ML 2 ML VIAL IV PRN (07:10)
--- NOTE | 2022-03-07 07:14 | Anesthesiology Consultation ---
Date of Service March 07, 2022 Assessment & Plan (1) Encounter for pre-operative examination: Chart Review Chart Review: Acceptable Risk for Surgery and Patient NOT seen in Pre Admission Testing Consults Requested none History Surgery Operation Date: 03/07/22 07:00 Proposed Procedures p Hemiarthroplasty Hip Left - Sergei R. Annette, Height/Weight Height: 5 ft 3 in Weight: 52.6 kg Allergies Allergy/AdvReac Type Severity Reaction Status Date / Time No Known Drug Allergies Allergy Verified 03/07/22 07:08 Medications Home Medications Medication Instructions Recorded Confirmed Last Taken cholecalciferol (vitamin D3) 50 2,000 unit PO QDD 07/31/18 11/04/21 05/07/19 mcg (2,000 unit) capsule glucosamine sulfate 500 mg capsule 500 mg PO QAM 07/31/18 11/04/21 05/07/19 omega-3 acid ethyl esters 1 gram 1 cap PO BID 07/31/18 11/04/21 05/07/19 capsule aspirin 81 mg tablet,delayed 81 mg PO QAM 04/23/19 11/04/21 05/07/19 release (Luis A Low Dose Aspirin) carboxymethylcellulose sodium 0.25 1 drp ophthalmic (eye) BID 04/23/19 11/04/21 05/07/19 % eye drops in a dropperette (TheraTears) multivitamin 1 tab PO QAM 04/23/19 11/04/21 05/07/19 plant stanol janine 450 mg tablet 450 mg PO QDD 04/23/19 11/04/21 05/07/19 (Cholest Off) vit C 250 mg-vit E 90 mg-zinc 40 1 tab PO BID 04/23/19 11/04/21 05/07/19 mg-copper 1 [id number] capsule (PreserVision AREDS-2) simvastatin 20 mg tablet 20 mg PO HS #90 tabs 05/21/21 11/04/21 Unknown Active Medications Generic Name Dose Route Start Last Admin Trade Name Freq PRN Reason Stop Dose Admin Acetaminophen 1,000 mg 03/05/22 14:55 03/06/22 20:21 Acetaminophen 500 Mg Tab PO 04/04/22 14:54 1,000 mg TID MARQUITA Administration Artificial Tears 1 drops 03/05/22 21:00 03/06/22 20:21 Artificial Tears OP 04/04/22 20:59 1 drops BID MARQUITA Administration Sodium Chloride 1,000 mls @ 100 mls/hr 03/05/22 14:55 03/07/22 05:04 Nss 1000ml IV 04/04/22 14:54 100 mls/hr .Q10H AMRQUITA Administration Multivitamins 1 tab 03/06/22 09:00 03/06/22 10:42 Multivitamin Tab PO 04/05/22 08:59 1 tab QAM MARQUITA Administration Potassium Phosphate 1 tab 03/06/22 13:00 03/06/22 20:21 Pot Phosphate Monobasic W/ Sod Tab PO 04/05/22 12:59 1 tab QID MARQUITA Administration Past Medical History Medical History Dyslipidemia Osteoporosis Pre-diabetes Exercise / Class Metabolic Activity II 4-5 Yardwork/Stairs/Walk up hill Past Family History Family History Mother Coronary heart disease Breast cancer Myocardial infarction Heart disease Hypertension Denies family history of Ovarian cancer Prostate cancer Diabetes Lung cancer Colorectal cancer Past Surgical History Surgical History History of left cataract surgery History of tonsillectomy Hx of removal of cyst RIGHT ARM Past Anesthesia History No Hx of Anesthesia Complications and No Family Hx of Anesthesia Complications History of PONV No Hx of PONV and No Hx of Motion Sickness Social History Smoking Status: Never smoker Do You Dip or Chew Tobacco: No Hx Alcohol Use: No Hx Substance Use: No substance use type: does not use Physical Exam Vital Signs Last Vital Signs Temp 36.8 C 03/07/22 07:12 Pulse 92 H 03/07/22 07:12 Resp 20 03/07/22 07:12 BP 162/94 H 03/07/22 07:12 Pulse Ox 91 03/07/22 07:12 O2 Del Method 03/07/22 07:12 Testing Laboratory Results 03/05/22 10:10 PT 10.3 Seconds (9.0-12.0) 03/05/22 10:10 INR 1.0 (0.9-1.1) 03/05/22 10:10 APTT 24.2 Seconds (21.0-31.0) 03/05/22 10:10 Urine Color Yellow 03/05/22 11:40 Urine Appearance Clear (Clear) 03/05/22 11:40 Urine pH 6.5 (4.5-7.5) 03/05/22 11:40 Ur Specific [place] 1.017 (1.000-1.030) 03/05/22 11:40 Urine Protein 1+ (Negative) H 03/05/22 11:40 Urine Glucose (UA) Trace (Negative) H 03/05/22 11:40 Urine Ketones 1+ (Negative) H 03/05/22 11:40 Urine Nitrite Negative (Negative) 03/05/22 11:40 Ur Leukocyte Esterase Negative (Negative) 03/05/22 11:40 Urine WBC (Auto) 0 /hpf (0-5) 03/05/22 11:40 Urine RBC (Auto) 0-4 /hpf (0-4) 03/05/22 11:40 U Hyaline Cast (Auto) 0 /lpf (0-5) 03/05/22 11:40 U Epithel Cells (Auto) 5-10 /lpf (0-5) H 03/05/22 11:40 Urine Bacteria (Auto) Negative (Negative) 03/05/22 11:40 03/05/22 22:00 Urine Culture - Preliminary Urine,Clean Catch No growth - Less than 1,000 colonies/mL, Final report to follow. Electrocardiogram Date: 03/05/22 DICTATED BY:Orlando Harman, DO Test Reason : Blood Pressure : / mmHG Vent. Rate : 106 BPM Atrial Rate : 106 BPM P-R Int : 152 ms QRS Dur : 082 ms QT Int : 294 ms P-R-T Axes : 070 -23 057 degrees QTc Int : 390 ms Poor data quality, interpretation may be adversely affected Sinus tachycardia with Premature atrial complexes Abnormal ECG No previous ECGs available Confirmed by Orlando Harman ([id number]) on 03/05/2022 1:00:05 PM Chest X-Ray Date: 03/05/22 XR chest 1V portable CLINICAL HISTORY: fall, pain TECHNIQUE: Single frontal radiograph of the chest was obtained. Comparison: None available at the time of this dictation. FINDINGS: No lines and tubes are seen. Cardiomegaly is noted. Bibasilar midline shift is seen. Airspace opacities in the left lower lung. There is likely left hemidiaphragmatic elevation. No evidence of pleural effusion or pneumothorax. IMPRESSION: Elevation of the left hemidiaphragm with likely associated atelectasis. Cardiomegaly is seen. Echocardiogram Date: 10/11/21 Normal LV systolic function. EF 50-55%. No RWMA. LVH. Mild MR No change when compared to 07/13/2018 echo. NO Other Testing 03/05/22 CT head/brain wo con CLINICAL HISTORY: ams Technique: Contiguous axial CT images of the head were acquired from the base of the skull to the vertex without intravenous contrast administration. Images were viewed in brain, subdural and bone windows. Automated dose lowering techniques and/or adjustment according to patient size were utilized for this exam. Comparison: Comparison is made to CT head 07/10/2012 Findings: Areas of decreased attenuation are present in the periventricular and subcortical white matter bilaterally consistent with small vessel ischemic disease. Generalized cerebral atrophy with commensurate enlargement of the ventricles, sulci, and cisterns is also present. There is no acute intracranial hemorrhage or evidence of acute territorial infarction. No shift of the midline structures, mass effect, or extra-axial abnormalities are shown. Atherosclerotic calcifications are present in the intracranial segments of the internal carotid arteries. Imaged portions of the paranasal sinuses and mastoid air cells are clear. The orbits appear normal. There are no acute fractures of the calvaria or scalp swelling. Impression: No acute intracranial hemorrhage, no evidence of acute territorial infarction or other acute intracranial disease process.
[2022-03-07] MEDS ORDERED: BUPIVACAINE 0.5 % 5 MG/1 ML PF 10ML VIAL ONE (07:22)
[2022-03-07] MEDS ORDERED: ceFAZolin 2000MG 2,000 MG/15 ML SYR IV ONE (07:38)
[2022-03-07] MEDS ORDERED: TRANEXAMIC ACID / 0.7% NACL 1,000 MG/100 ML BAG IV ONE ×2 (07:39)
[2022-03-07] MEDS ORDERED: TRANEXAMIC ACID / 0.7% NACL 1000MG/100ML BAG IV ONE (07:43)
--- NOTE | 2022-03-07 07:46 | History & Physical Bridge Note ---
Date of Service March 07, 2022 History & Physical Bridge Note I have examined the patient, reviewed the History & Physical and in the interval since the performance of the History & Physical I have noted the following changes of clinical significance: no changes noted. Discussed risks/benefits of Left hip hemiarthroplasty, pt agrees to surgical intervention and written consent obtained.
[2022-03-07 08:04] LABS: Calcium 9.7 mg/dl (8.5-10.1); Creatinine Clr Calc Pharmacy 76.9 ml/min; Est GFR (African American) 106.2 ml/min; Est GFR (Non-African American) 91.6 ml/min; Phosphorus 1.9 mg/dl (2.5-4.9); Potassium 3.2 mmol/L (3.5-5.1)
--- NOTE | 2022-03-07 09:31 | Post Operative Brief Note ---
Immediate Post Op Note v1 Date of Surgery March 07, 2022 Pre & Post Diagnosis Operation Date: 03/07/22 07:00 Pre-Op Diagnosis: Left Femoral Neck Fracture. Post-Op Diagnosis: Left Femoral Neck Fracture. I identified the patient and participated in the time-out.: Yes Procedure Operation Date: 03/07/22 07:00 Actual Procedures p Hemiarthroplasty Hip Left(Left) - Sergei Bryant DO Surgeon Sergei Bryant, Surface Room Shop Optician none Estimated Blood Loss 75 Findings Consistent with Post-Op Diagnosis see dictation Drains Bronson Catheter (patient arrived to OR with bronson cath in place) Complications none
--- NOTE | 2022-03-07 09:38 | Operative Report ---
Post Operative Report Pre & Post Diagnosis Operation Date: 03/07/22 07:00 Pre-Op Diagnosis: Left Femoral Neck Fracture. Post-Op Diagnosis: Left Femoral Neck Fracture. I identified the patient and participated in the time-out.: Yes Procedure Operation Date: 03/07/22 07:00 Actual Procedures p Hemiarthroplasty Hip Left(Left) - Sergei Bryant DO Surgeon Sergei Bryant DO [employer] none Estimated Blood Loss 75 Findings Consistent with Post-Op Diagnosis See dictation Specimens Femoral head Complications None Indications 87-year-old female presenting to [facility] emergency department after sustaining a ground-level fall onto her left hip. In the emergency department radiographs were obtained demonstrating a displaced left femoral neck fracture. Patient was admitted to medical service and orthopedics was consulted for operative management. I met with the patient preoperatively. We had a lengthy discussion regarding risk benefits and potential complications of left hip hemiarthroplasty. After reviewing these she elected to proceed with surgical intervention and written consent was obtained. Description of Procedure Implants: [place] Accolade two 127 degree neck angle hip stem size #4, 47 mm universal head bipolar component, [place] L FIT V 40 femoral head 26 mm outside diameter with +4 mm offset Procedure: Patient was appropriately identified in the left lower extremity was marked in the preoperative holding area. She was then taken to the operative suite where she received antibiotics per protocol as well as spinal anesthesia. She was then positioned in the lateral decubitus position with the left hip facing upwards using Stulberg hip positioners. She was then prepped and draped in standard orthopedic fashion a timeout was then performed. Posterior lateral incision over the rater trochanter was then made using a scalpel. Electrocautery was used to dissect through the subcutaneous tissue down to the IT band and gluteal fascia which was then split in line with the incision. Charnley retractor was then placed. Retractor was then placed under the gluteus medius and minimus tendon complex and the piriformis was then tagged and reflected off the posterior capsule. T capsulotomy was then performed. There was a gush of fracture hematoma noted. The hip was then internally rotated and a femoral neck osteotomy was made using a saw approximately 1 fingerbreadth above the lesser trochanter. Residual bone fragments were then removed as well as the femoral head by placing a corkscrew in it. The acetabulum was checked for any interposing soft tissue and then trialing was performed. A 47 mm diameter femoral head was noted to have good suction fit. Trial was then removed and attention was turned to preparation of the femoral canal. Femoral neck elevator was placed under the medial calcar and a box osteotome was then used on the lateral canal followed by canal finding reamer. The canal was then sequentially broached up to a size #4 stem which was noted to have good fit and fill. A 127 degree neck angle trial was then placed with a 47 mm +4 mm offset femoral head. The hip was then successfully reduced leg lengths as well as stability in flexion extension internal and external rotation and shock were all assessed and noted to be satisfactory. The hip was then successfully dislocated and all trial components were then removed. The wound was then copiously irrigated using dilute Betadine solution followed by normal saline solution. A size #4 femoral stem was then impacted under visualization of the calcar. Trunnion was then irrigated and dried and a 47 mm +4 mm offset femoral head was then impacted onto the trunnion with several brisk taps. Acetabulum was then irrigated and suctioned and checked for any interposing soft tissue. The hip was then successfully relocated. Once again stability in flexion, extension, internal and external rotation were all assessed as well as leg lengths which were noted to be satisfactory. It was then copiously irrigated with dilute Betadine solution followed by normal saline solution. The T capsulotomy was then closed in a [id number] fashion using a 1-0 Ethibond suture. Charnley retractor was then removed and IT band gluteal fascia was closed in a [id number]-[id number] fashion using interrupted 1-0 Ethibond suture followed by running OV lock suture. Subcutaneous tissues were then copiously irrigated and dried and subcutaneous tissues were closed using 2-0 Vicryl followed by adriane for the skin. A sterile ChloraPrep applicator was used to paint the incision and a sterile Silverlon dressing was placed. The patient tolerated the procedure well and was taken the recovery room in hemodynamically stable condition. I attest to the content of the Intraoperative Record and any orders documented therein. Any exceptions are noted below.
--- NOTE | 2022-03-07 10:50 | XRay Report ---
XR pelvis 1-2V routine CLINICAL HISTORY: PACU - Post Surgical TECHNIQUE: A single frontal view of the pelvis was obtained. Comparison: Comparison is made to hip radiograph 03/05/2022 FINDINGS: Patient is status post total hip arthroplasty with expected postsurgical changes including soft tissu e swelling, and subcutaneous emphysema. No periarticular lucency or hardware fracture is seen. IMPRESSION: Expected postoperative appearance status post placement of total hip arthroplasty. ACT 112: Negative or not required by law. Electronically signed by: Tyrone Stewart M.D. 03/07/2022 10:49 AM
[2022-03-07] MEDS: POT PHOSPHATE MONOBASIC W/ SOD TAB PO SCH ×4 (12:14→20:14)
[2022-03-07] MEDS: ACETAMINOPHEN 500 MG TAB PO SCH ×3 (12:14→20:14)
[2022-03-07] MEDS: MULTIVITAMIN TAB PO SCH (13:32)
[2022-03-07] MEDS: ARTIFICIAL TEARS OP SCH ×2 (13:37→20:14)
--- NOTE | 2022-03-07 14:26 | Anesthesiology Progress Note ---
Date of Service March 07, 2022 Anesthesia Post Procedure Vital Signs Vital Signs: Temp Pulse Pulse Pulse Resp BP Pulse Ox 03/07/22 14:20 37 C 89 18 134/76 91 03/07/22 13:15 36.9 C 97 H 18 137/77 91 03/07/22 12:15 36.6 C 104 H 16 133/76 92 03/07/22 11:15 03/07/22 11:15 36.8 C 77 18 130/78 94 03/07/22 11:45 36.6 C 76 18 127/67 98 03/07/22 10:45 37.1 C 73 24 132/76 96 03/07/22 10:25 75 18 128/68 94 03/07/22 10:55 37.1 C 67 17 127/70 96 03/07/22 10:35 37.1 C 75 17 130/74 96 03/07/22 10:15 80 18 126/79 94 03/07/22 09:55 71 17 111/67 97 03/07/22 10:05 67 16 121/69 98 03/07/22 09:45 71 18 113/61 98 03/07/22 09:36 36.8 C 78 20 94/54 L 99 03/07/22 07:12 36.8 C 92 H 20 162/94 H 91 03/06/22 20:20 37.3 C 92 H 20 149/67 H 92 03/06/22 15:21 37.0 C 87 16 145/74 H 90 O2 Del Method O2 Flow Rate 03/07/22 14:20 Room Air 03/07/22 13:15 Room Air 03/07/22 12:15 Room Air 03/07/22 11:15 Nasal Cannula 2 03/07/22 11:15 Nasal Cannula 2 03/07/22 11:45 Nasal Cannula 2 03/07/22 10:45 Nasal Cannula 2 03/07/22 10:25 Nasal Cannula 2 03/07/22 10:55 Nasal Cannula 2 03/07/22 10:35 Nasal Cannula 2 03/07/22 10:15 Room Air 03/07/22 09:55 Oxymask 3 03/07/22 10:05 Oxymask 2 03/07/22 09:45 Oxymask 4 03/07/22 09:36 Oxymask 5 12/26/22 07:12 Room Air 03/06/22 20:20 Room Air 03/06/22 15:21 Room Air Transfer of Care Handoff Completed per policy Notes Mental Status: alert / awake / arousable Patient Amnestic to Procedure: Yes Nausea / Vomiting: adequately controlled Pain: adequately controlled Airway Patency, RR, SpO2: stable & adequate BP & HR: stable & adequate Hydration State: stable & adequate Neuraxial Anesthesia: was administered and sensory block is resolving Anesthetic Complications: no major complications apparent and Pt Satisfied with anesthetic care
[2022-03-07] MEDS: ceFAZolin 2000MG 2,000 MG/15 ML SYR IV SCH ×2 (16:52→22:47)
[2022-03-07] MEDS: ASPIRIN 81 MG ECTAB PO SCH (20:14)
--- NOTE | 2022-03-07 22:03 | Hospitalist Progress Note ---
Date of Service March 07, 2022 Assessment & Plan (1) Fracture of femoral neck, left: Plan: Age-related osteoporotic fracture of the left femur s/p Hemiarthroplasty Hip Left on 03/07 87-year-old female with a history of osteoporosis presents after being found at home in her hallway after a prolonged downtime with a fractured right hip Certainly could be osteoporosis related. However, she has a very large breast mass on left worrisome for breast cancer and she could easily have bone mets. During surgery bone will be sent for pathology. Cont pain meds. Cont IVF. Bedrest, bronson. Appreciate Dr Bryant's consultation. (2) Rhabdomyolysis: Plan: Rhabdomyolysis in the setting of fall with prolonged downtime 87-year-old female who was found in her home in her hallway on the floor with a fractured hip. It does seem as if this patient may have had a prolonged downtime. Mild, 2nd to fall. Cont IVF. CK below 1000, downtrending, will not repeat. (3) Hypercalcemia: Plan: Presenting total calcium 11.6, now 10.5 s/p IV fluids. 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 Cont IV fluids. Hold vitamin D supplement. Intact PTH wnl. (4) Breast mass, left: Plan: highly suspicious for breast cancer uncertain if she would even want a biopsy she has not told her family about the mass I encouraged her to discuss this with her family (5) Dyslipidemia: Plan: holding statin due to mild rhabdo, etc (6) Pre-diabetes: Plan: resolved last a1c was 5.3% this summer (7) Vitamin D deficiency: Plan: resolved last 25-OH vit D level was 65 this past summer repeat level in am to ensure she is not toxic/high from the vitamin D supplement (8) Hypophosphatemia: Plan: since intact PTH level is normal this may be PTH-related peptide driven consider sending PTH-related peptide - hold for now start K-phos 1 QID recheck phos level in 48 hours (9) Mitral regurgitation: Plan: as seen on echo 10/2021 (10) DVT prophylaxis: Plan: SCDs for now if she indeed has breast cancer I would be in favor of either low-dose Xarelto, lovenox, etc rather than aspirin given high DVT risk Admission and Anticipated Discharge Date Admission Date: March 05, 2022 Subjective Patient reports pain is controlled. Review of Systems Review of Systems: All systems reviewed & are unremarkable except as noted in HPI & below Physical Exam Physical Exam: gen - thin, NAD, pleasant mouth - MMM neck - no JVD chest - left breast - VERY LARGE breast mass superior quadrants,nipple distorted due to the mass, firm/hard to palpation; size - at least 3-4 inches in diameter heart - RRR, s1 s2, 1/6 BRIT LSB lungs - CTA b/l abd - soft, NT ND BS+ ext -pulses 2+ b/l; no edema of ankles psych - a/o x 3 Results & Data Results & Data ([facility]) Vital Signs (Past 12 Hours) Vital Signs Temp Pulse Pulse Pulse Resp BP BP 03/07/22 21:47 36.7 C 82 16 138/70 03/07/22 20:01 36.8 C 84 16 149/70 H 03/07/22 16:00 36.9 C 86 18 119/66 03/07/22 16:00 36.7 C 73 18 180/88 H 03/07/22 14:20 37 C 89 18 134/76 03/07/22 13:15 36.9 C 97 H 18 137/77 03/07/22 12:15 36.6 C 104 H 16 133/76 03/07/22 11:15 03/07/22 11:15 36.8 C 77 18 130/78 03/07/22 11:45 36.6 C 76 18 127/67 03/07/22 10:45 37.1 C 73 24 132/76 03/07/22 10:25 75 18 128/68 03/07/22 10:55 37.1 C 67 17 127/70 03/07/22 10:35 37.1 C 75 17 130/74 03/07/22 10:15 80 18 126/79 03/07/22 10:05 67 16 121/69 Pulse Ox O2 Del Method O2 Flow Rate 03/07/22 21:47 94 Nasal Cannula 2.0 03/07/22 20:01 94 Nasal Cannula 2.0 03/07/22 16:00 90 Room Air 03/07/22 16:00 93 Room Air 03/07/22 14:20 91 Room Air 03/07/22 13:15 91 Room Air 03/07/22 12:15 92 Room Air 03/07/22 11:15 Nasal Cannula 2 03/07/22 11:15 94 Nasal Cannula 2 03/07/22 11:45 98 Nasal Cannula 2 03/07/22 10:45 96 Nasal Cannula 2 03/07/22 10:25 94 Nasal Cannula 2 03/07/22 10:55 96 Nasal Cannula 2 03/07/22 10:35 96 Nasal Cannula 2 03/07/22 10:15 94 Room Air 03/07/22 10:05 98 Oxymask 2 PG Care Time/CCT Total # of Minutes Spent Total Time Spent with Patient: Total time spent is greater than 50% in coordination of care (as documented) at patient's floor/unit and/or counseling patient: Coding Level of Care Code 64804 Subseq Hosp Care Lvl 2 Diagnoses Fracture of femoral neck, left S72.002A Encounter type: initial encounter Fracture type: closed Rhabdomyolysis T79.6XXA Encounter type: initial encounter Rhabdomyolysis type: traumatic Hypercalcemia E83.52 Breast mass, left N63.20 Dyslipidemia E78.5 Pre-diabetes R73.03 Vitamin D deficiency E55.9 Hypophosphatemia E83.39 Mitral regurgitation I34.0 DVT prophylaxis Z29.9 (1) Rhabdomyolysis Encounter type: initial encounter Rhabdomyolysis type: traumatic Qualified Code(s): T79.6XXA - Traumatic ischemia of muscle, initial encounter (2) Fracture of femoral neck, left Encounter type: initial encounter Fracture type: closed Qualified Code(s): S72.002A - Fracture of unspecified part of neck of left femur, initial encounter for closed fracture
[2022-03-08] MEDS ORDERED: POLYETHYLENE (MIRALAX) 17 GM PACK PO ONE (05:03)
[2022-03-08] MEDS: SODIUM CHLORIDE 0.9% 1000ML 1,000 ML IV SCH (05:15)
[2022-03-08 07:52] LABS: Basophils # (auto) 0.03 K/uL (0-0.2); Basophils % (auto) 0.3 %; Eosinophils # (auto) 0.01 K/uL (0-0.50); Eosinophils % (auto) 0.1 %; Hematocrit (blood only) 34.3 % (34.1-44.9); Hemoglobin 11.3 g/dl (12.0-16.0); Immature Granulocytes # (auto) 0.05 K/uL (0.00-0.02); Immature Granulocytes % (auto) 0.5 %; Lymphocytes # (auto) 0.81 K/uL (1.2-3.4); Lymphocytes % (auto) 8.6 %; Mean Corpuscular Hemoglobin 31.5 pg (25.0-34.0); Mean Corpuscular Hgb Conc 32.9 g/dL (32.0-36.0); Mean Corpuscular Volume 95.5 fL (80.0-100.0); Monocytes # (auto) 1.06 K/uL (0.24-0.82); Monocytes % (auto) 11.2 %; Neutrophils # (auto) 7.47 K/uL (1.4-6.5); Neutrophils % (auto) 79.3 %; Platelet Count 151 K/uL (130-400); RDW Coefficient of Variation 12.4 % (11.5-14.5); RDW Standard Deviation 43.6 fL (36.4-46.3); Red Blood Count 3.59 M/uL (3.93-5.22); White Blood Count 9.43 K/ul (4.8-10.8)
[2022-03-08 08:14] LABS: BUN Creatinine Ratio 32.3 (10-20); Calcium 9.1 mg/dl (8.5-10.1); Creatinine Clr Calc Pharmacy 101.8 ml/min; Est GFR (African American) 116.4 ml/min; Est GFR (Non-African American) 100.4 ml/min; Potassium 2.8 mmol/L (3.5-5.1)
[2022-03-08] MEDS: ASPIRIN 81 MG ECTAB PO SCH ×2 (09:01→20:16)
[2022-03-08] MEDS: ACETAMINOPHEN 500 MG TAB PO SCH ×3 (09:01→20:16)
[2022-03-08] MEDS: MULTIVITAMIN TAB PO SCH (09:01)
[2022-03-08] MEDS: ARTIFICIAL TEARS OP SCH ×2 (09:01→20:16)
[2022-03-08] MEDS: POT PHOSPHATE MONOBASIC W/ SOD TAB PO SCH ×4 (09:01→20:16)
[2022-03-08] MEDS: POTASSIUM CHLORIDE CRTAB 20 MEQ TABCR PO SCH ×3 (09:06→20:16)
[2022-03-08] MEDS: POTASSIUM CHLORIDE / WTR 10 MEQ/100 ML PLCT IV SCH ×4 (10:41→14:16)
[2022-03-08] MEDS: MAGNESIUM SULFATE / D5W 1 GM/100 ML BAG IV SCH ×2 (15:46→17:47)
--- NOTE | 2022-03-08 22:06 | Hospitalist Progress Note ---
Date of Service March 08, 2022 Assessment & Plan (1) Fracture of femoral neck, left: Plan: Certainly could be osteoporosis related. However, she has a very large breast mass on left worrisome for breast cancer and she could easily have bone mets. During surgery bone will be sent for pathology. POD #1 s/p ORIF by Dr Bryant. Appreciate his assistance. Cont pain meds. Cont IVF tonight then d/c. Remove bronson hopefully next 24 hours. 25-OH vit D level >40. (2) Rhabdomyolysis: Plan: Peak 1168, now <300. Can d/c fluids. This was 2nd to fall. (3) Hypercalcemia: Plan: Presenting total calcium 11.6 - now <10. 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 Cont IV fluids. Hold vitamin D supplement. Intact PTH wnl. 25-OH vit D level not toxic range. (4) Breast mass, left: Plan: highly suspicious for breast cancer uncertain if she would even want a biopsy she has not told her family about the mass I encouraged her to discuss this with her family (5) Dyslipidemia: Plan: holding statin due to mild rhabdo, etc (6) Pre-diabetes: Plan: resolved last a1c was 5.3% this summer (7) Vitamin D deficiency: Plan: resolved last 25-OH vit D level was 65 this past summer repeat level 40s (8) Hypophosphatemia: Plan: since intact PTH level is normal this may be PTH-related peptide driven consider sending PTH-related peptide - hold for now started K-phos 1 QID phos was 1.4, now 1.9 yesterday recheck in 2-3 days (9) Mitral regurgitation: Plan: as seen on echo 10/2021 (10) DVT prophylaxis: Plan: asa 81mg BID for now if she indeed has breast cancer I would be in favor of either low-dose Xarelto, lovenox, etc rather than aspirin given high DVT risk (11) Hypokalemia: Plan: replace IV + PO replace low mag repeat levels am (12) Hypomagnesemia: Plan: replete repeat level am Plan irregular heart rhythm on exam - EKG obtained - NSR with PACs only; no a.fib dispo - will need rehab post-d/c Admission and Anticipated Discharge Date Admission Date: March 05, 2022 Subjective no new events has expected post-op pain in L hip but otherwise feels ok ate fair today worked with PT did not tell her family about breast mass on left no new issues Review of Systems Review of Systems: gen - no fever cv - no chest pain or orthopnea pulm - mild dyspnea? but she wasn't sure; was vague about this Gi - no pain Physical Exam Physical Exam: gen - thin, NAD, pleasant, awake/alert; looks tired mouth - MMM neck - no JVD heart - irregular, s1 s2, 1/6 BRIT LSB lungs - CTA b/l abd - soft, NT ND BS+ ext - no ankle edema, pulses 2+ b/l psych - a/o x 3 skin - dressings intact L hip Results & Data Results & Data ([facility]) Vital Signs (Past 12 Hours) Vital Signs Temp Pulse Pulse Resp BP Pulse Ox O2 Del Method 03/08/22 21:05 95 Nasal Cannula 03/08/22 21:00 36.5 C 85 18 135/75 87 L Room Air 03/08/22 14:57 36.6 C 106 H 18 128/80 96 Room Air 03/08/22 10:27 101 H 18 93 Nasal Cannula O2 Flow Rate 03/08/22 21:05 4 03/08/22 21:00 03/08/22 14:57 03/08/22 10:27 2.5 Laboratory Results Laboratory Results - last 24 hr 03/08/22 03/08/22 03/08/22 07:18 07:18 07:18 WBC 9.43 RBC 3.59 L Hgb 11.3 L Hct 34.3 MCV 95.5 MCH 31.5 MCHC 32.9 RDW Std Deviation 43.6 RDW Coeff of Aiyana 12.4 Plt Count 151 MPV 10.0 Immature Gran % (Auto) 0.5 Neut % (Auto) 79.3 Lymph % (Auto) 8.6 [place] % (Auto) 11.2 Eos % (Auto) 0.1 Baso % (Auto) 0.3 Neut # (Auto) 7.47 H Lymph # (Auto) 0.81 L [place] # (Auto) 1.06 H Eos # (Auto) 0.01 Baso # (Auto) 0.03 Immature Gran # (Auto) 0.05 H Sodium 140 Potassium 2.8 L Chloride 107 Carbon Dioxide 28 Anion Gap 5 BUN 10 Creatinine 0.31 L Est Cr Clr Drug Dosing 101.8 Est GFR ( Amer) 116.4 Est GFR (Non-Af Amer) 100.4 BUN/Creatinine Ratio 32.3 H Glucose 152 H Calcium 9.1 Magnesium 1.6 L PG Care Time/CCT Total # of Minutes Spent Total Time Spent with Patient: Total time spent is greater than 50% in coordination of care (as documented) at patient's floor/unit and/or counseling patient: Coding Level of Care Code 39855 Subseq Hosp Care Lvl 3 Diagnoses Fracture of femoral neck, left S72.002A Encounter type: initial encounter Fracture type: closed Rhabdomyolysis T79.6XXA Encounter type: initial encounter Rhabdomyolysis type: traumatic Hypercalcemia E83.52 Breast mass, left N63.20 Dyslipidemia E78.5 Pre-diabetes R73.03 Vitamin D deficiency E55.9 Hypophosphatemia E83.39 Mitral regurgitation I34.0 DVT prophylaxis Z29.9 Hypokalemia E87.6 Hypomagnesemia E83.42 (1) Rhabdomyolysis Encounter type: initial encounter Rhabdomyolysis type: traumatic Qualified Code(s): T79.6XXA - Traumatic ischemia of muscle, initial encounter (2) Fracture of femoral neck, left Encounter type: initial encounter Fracture type: closed Qualified Code(s): S72.002A - Fracture of unspecified part of neck of left femur, initial encounter for closed fracture
[2022-03-09 07:00] LABS: Hematocrit (blood only) 33.4 % (34.1-44.9)
--- NOTE | 2022-03-09 07:57 | Orthopedic Progress Note ---
Date of Service March 09, 2022 Assessment & Plan (1) Fracture of femoral neck, left: Plan: 87-year-old female status post left hip hemiarthroplasty postoperative day #2 Pain control Weightbearing as tolerated left lower extremity PT/OT DVT prophylaxis Medical management Discharge planning Stable from orthopedics standpoint. We will sign off at this time. Patient may follow-up in 2 weeks as an outpatient Admission and Anticipated Discharge Date Admission Date: March 05, 2022 Subjective Patient seen and examined, no acute events overnight. Pain well controlled. Out of bed ambulating with physical therapy Physical Exam Constitutional: General: No acute distress, alert and oriented person place and time Musculoskeletal: --Left lower extremity Dressings clean dry intact Thigh soft and compressible Sensation intact to light touch saphenous/superficial peroneal nerve/deep peroneal nerve/tibial/sural nerve distributions Fires tibialis anterior/extensor houses longus/gastrocsoleus complex Palpable dorsalis pedis and posterior tibial pulse Results & Data ([facility]) Vital Signs (Past 12 Hours) Vital Signs Temp Pulse Resp BP Pulse Ox O2 Del Method O2 Flow Rate 03/09/22 07:21 37.1 C 62 16 132/74 94 Room Air 03/08/22 21:05 95 Nasal Cannula 4 03/08/22 21:00 36.5 C 85 18 135/75 87 L Room Air (1) Fracture of femoral neck, left Encounter type: initial encounter Fracture type: closed Qualified Code(s): S72.002A - Fracture of unspecified part of neck of left femur, initial encounter for closed fracture
[2022-03-09 08:03] LABS: BUN Creatinine Ratio 34.3 (10-20); Calcium 9.8 mg/dl (8.5-10.1); Creatinine Clr Calc Pharmacy 90.1 ml/min; Est GFR (African American) 111.8 ml/min; Est GFR (Non-African American) 96.5 ml/min; Magnesium 2.1 mg/dl (1.7-2.4); Potassium 3.6 mmol/L (3.5-5.1)
[2022-03-09] MEDS: ACETAMINOPHEN 500 MG TAB PO SCH ×3 (08:44→21:04)
[2022-03-09] MEDS: POT PHOSPHATE MONOBASIC W/ SOD TAB PO SCH ×4 (08:44→21:04)
[2022-03-09] MEDS: MULTIVITAMIN TAB PO SCH (08:44)
[2022-03-09] MEDS: ASPIRIN 81 MG ECTAB PO SCH ×2 (08:44→21:05)
[2022-03-09] MEDS: ARTIFICIAL TEARS OP SCH ×2 (08:46→21:04)
--- NOTE | 2022-03-09 09:41 | Electrocardiogram Report ---
Test Reason : Blood Pressure : / mmHG Vent. Rate : 092 BPM Atrial Rate : 092 BPM P-R Int : 156 ms QRS Dur : 098 ms QT Int : 308 ms P-R-T Axes : 062 -21 059 degrees QTc Int : 380 ms Sinus rhythm with Premature atrial complexes Otherwise normal ECG When compared with ECG of 05-MAR-2022 09:49, No significant change was found Confirmed by Mason Cox ([id number] on 03/09/2022 9:41:17 AM Referred By: REFERRED SELF Confirmed By:Nicholas Cox
--- NOTE | 2022-03-09 21:08 | Hospitalist Progress Note ---
Date of Service March 09, 2022 Assessment & Plan (1) Fracture of femoral neck, left: Plan: Certainly could be osteoporosis related. However, she has a very large breast mass on left worrisome for breast cancer and she could easily have bone mets. During surgery bone will be sent for pathology. POD #2 s/p ORIF by Dr Bryant. Appreciate his assistance. Cont pain meds. Remove bronson in am. 25-OH vit D level >40. (2) Rhabdomyolysis: Plan: Peak 1168, now <300. Fluids have been d/c. This was 2nd to fall. (3) Hypercalcemia: Plan: Presenting total calcium 11.6 - now <10. 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 Hold vitamin D supplement. Intact PTH wnl. 25-OH vit D level not toxic range. Consider PTH-related peptide level. Consider SPEP/UPEP. If levels climb again then consider IV bisphosphonate. (4) Breast mass, left: Plan: highly suspicious for breast cancer she has not told her family about the mass I encouraged her to discuss this with her family I asked today for permission to discuss this personally with her family - she kindly asked me NOT to mention this to her family "I want to deal with one thing at a time" [wants to deal with the hip now; will address this issue in the future] (5) Dyslipidemia: Plan: holding statin due to mild rhabdo, etc resume at d/c (6) Pre-diabetes: Plan: resolved last a1c was 5.3% this summer (7) Vitamin D deficiency: Plan: resolved last 25-OH vit D level was 65 this past summer repeat level 40s (8) Hypophosphatemia: Plan: since intact PTH level is normal this may be PTH-related peptide driven consider sending PTH-related peptide - hold for now started K-phos 1 QID phos was 1.4 on first check recheck in 2-3 days (9) Mitral regurgitation: Plan: as seen on echo 10/2021 (10) DVT prophylaxis: Plan: asa 81mg BID for now if she indeed has breast cancer I would be in favor of either low-dose Xarelto, lovenox, etc rather than aspirin given high DVT risk (11) Hypokalemia: Plan: replaced IV + PO K level now normal mag level normal today as well (12) Hypomagnesemia: Plan: repleted resolved (13) Leg edema, left: Plan: in light of heavy concern she has left-sided breast cancer not unreasonable to check a doppler of LLE to ensure no post-op DVT doppler ordered Plan irregular heart rhythm on exam - EKG obtained yesterday - NSR with PACs only; no a.fib dispo - rehab post-d/c Admission and Anticipated Discharge Date Admission Date: March 05, 2022 Subjective patient sat in chair for much of the day feels good she inquires about the swelling in her left thigh she thinks it is worse than yesterday she is moving her bowels eating well no dyspnea left hip pain is controlled she still has not told her family about the left sided breast mass Review of Systems Review of Systems: gen - good energy today; slept well overnight cv - no cp pulm - no dyspnea at rest or with exertion GI - no pain, nausea or emesis - bronson still in place; she asks to keep it in place until the AM tomorrow Physical Exam Physical Exam: gen - thin, NAD, pleasant, awake/alert; looks good today; sitting in chair mouth - MMM neck - no JVD heart - irregular (extra beats), s1 s2, 1/6 BRIT LSB lungs - CTA b/l abd - soft, NT ND BS+ ext - left thigh with fairly tense edema but no cords or erythema or tenderness; left ankle <1+ edema; right leg without edema psych - a/o x 3 skin - dressings intact L hip Results & Data Results & Data ([facility]) Vital Signs (Past 12 Hours) Vital Signs Temp Pulse Resp BP Pulse Ox O2 Del Method O2 Flow Rate 03/09/22 15:00 36.6 C 81 16 133/83 97 Nasal Cannula 4 Laboratory Results Laboratory Results - last 24 hr 03/09/22 03/09/22 06:11 06:11 Hgb 11.0 L Hct 33.4 L Sodium 141 Potassium 3.6 D Chloride 108 H Carbon Dioxide 30 Anion Gap 3 BUN 12 Creatinine 0.35 L Est Cr Clr Drug Dosing 90.1 Est GFR ( Amer) 111.8 Est GFR (Non-Af Amer) 96.5 BUN/Creatinine Ratio 34.3 H Glucose 128 H Calcium 9.8 Magnesium 2.1 PG Care Time/CCT Total # of Minutes Spent Total Time Spent with Patient: Total time spent is greater than 50% in coordination of care (as documented) at patient's floor/unit and/or counseling patient: Coding Level of Care Code 88991 Subseq Hosp Care Lvl 2 Diagnoses Fracture of femoral neck, left S72.002A Encounter type: initial encounter Fracture type: closed Rhabdomyolysis T79.6XXA Encounter type: initial encounter Rhabdomyolysis type: traumatic Hypercalcemia E83.52 Breast mass, left N63.20 Dyslipidemia E78.5 Pre-diabetes R73.03 Vitamin D deficiency E55.9 Hypophosphatemia E83.39 Mitral regurgitation I34.0 DVT prophylaxis Z29.9 Hypokalemia E87.6 Hypomagnesemia E83.42 Leg edema, left R60.0 (1) Rhabdomyolysis Encounter type: initial encounter Rhabdomyolysis type: traumatic Qualified Code(s): T79.6XXA - Traumatic ischemia of muscle, initial encounter (2) Fracture of femoral neck, left Encounter type: initial encounter Fracture type: closed Qualified Code(s): S72.002A - Fracture of unspecified part of neck of left femur, initial encounter for closed fracture
[2022-03-10 09:02] LABS: Calcium 11.3 mg/dl (8.5-10.1); Creatinine Clr Calc Pharmacy 68.6 ml/min; Est GFR (African American) 102.2 ml/min; Est GFR (Non-African American) 88.2 ml/min; Potassium 3.3 mmol/L (3.5-5.1)
--- NOTE | 2022-03-10 10:01 | Ultrasound Report ---
US venous doppler LE LT CLINICAL HISTORY: recent L hip Fx ORIF; severe edema; eval DVT TECHNIQUE: Left lower extremity real-time compression venous ultrasound with Color Doppler imaging. U tilizing real-time ultrasonic imaging multiple real time high-resolution ultrasonic images with compr ession and noncompression maneuvers of the deep venous system in addition to color doppler imaging we re performed from the common femoral vein through the proximal calf veins. COMPARISON: None available at the time of this dictation. FINDINGS: Currently there is normal compressibility of the deep venous system from the common femoral vein thro ugh the proximal calf veins. Popliteal cyst is seen. Impression: No evidence of deep venous thrombus. ACT 112: Negative or not required by law. Electronically signed by: Tyrone Stewart M.D. 03/10/2022 10:00 AM
[2022-03-10] MEDS: POT PHOSPHATE MONOBASIC W/ SOD TAB PO SCH ×4 (10:05→20:28)
[2022-03-10] MEDS: ACETAMINOPHEN 500 MG TAB PO SCH ×3 (10:05→20:29)
[2022-03-10] MEDS: ARTIFICIAL TEARS OP SCH ×2 (10:06→20:30)
[2022-03-10] MEDS: MULTIVITAMIN TAB PO SCH (10:06)
[2022-03-10] MEDS: ASPIRIN 81 MG ECTAB PO SCH ×2 (10:06→20:28)
[2022-03-10] MEDS ORDERED: CALCITONIN SALMON 400 UNITS/2 ML SQ ONE (11:00)
[2022-03-10] MEDS: SODIUM CHLORIDE 0.9% 500 ML IV SCH ×2 (11:11→16:04)
--- NOTE | 2022-03-10 11:57 | Hospitalist Progress Note ---
Date of Service March 10, 2022 Assessment & Plan (1) Fracture of femoral neck, left: Plan: Certainly could be osteoporosis related. However, she has a very large breast mass on left worrisome for breast cancer and she could easily have bone mets. During surgery bone was sent for pathology - no tumor seen Full pathology report above POD #2 s/p ORIF by Dr Bryant. Appreciate his assistance. Cont pain meds. Remove bronson in am. 25-OH vit D level >40. (2) Rhabdomyolysis: Plan: Peak 1168, now <300. Fluids have been d/c. This was 2nd to fall. (3) Hypercalcemia: Plan: Presenting total calcium 11.6 - decreased then increased today to 11.3 In light of #4 -- hypercalcemia due to cancer (PTH-related peptide driven)? Hold vitamin D supplement. Intact PTH wnl. 25-OH vit D level not toxic range. Consider PTH-related peptide level. Consider SPEP/UPEP. Discussed with Nephrology (Dr Hughes who stated this is mild nonPTH mediated hypercalcemia and recommended IVF with NS 0.9, calcitonin and monitoring Ca) He also recommended investigating the left breast mass (see below) Started NSS IVFs at 125 mls/hour Calcitonin 210.4 units SQ Will repeat Ca in 4-6 hours Calcium decreased to 10.7 4 hours after Calcitonin Will continue SQ Calcitonin q 12 hours for 48 hours Repeat AM labs (4) Breast mass, left: Plan: Exam is highly suspicious for breast cancer She has not told her family about the mass Patient states she has had this mass for the past 2 years and it has significantly grown in size She denies any other masses, nipple discharge, trauma or injury to the breast I had a long conversation with patient. I encouraged her to discuss this with her family. She told me that she only wants to deal with her hip fracture and recovering at this time. She states, " I know it may be cancerous, but I have lived my life and do not want to have anything done with this at this time. She is aware that her family may want to know this for family history and genetic purposes. She states she will think about telling her family. But at this point she is very adamant that she dose not want me to discuss this with them and she is not interested in having any mammogram, ultrasound, biopsy or any other scans to look for cancer. (5) Dyslipidemia: Plan: holding statin due to mild rhabdo, etc resume at d/c (6) Pre-diabetes: Plan: resolved last a1c was 5.3% this summer (7) Vitamin D deficiency: Plan: resolved last 25-OH vit D level was 65 this past summer repeat level 40s (8) Hypophosphatemia: Plan: since intact PTH level is normal this may be PTH-related peptide driven consider sending PTH-related peptide - hold for now started K-phos 1 QID phos was 1.4 on first check recheck in 2-3 days Recheck in AM (9) Mitral regurgitation: Plan: as seen on echo 10/2021 (10) DVT prophylaxis: Plan: asa 81mg BID for now if she indeed has breast cancer I would be in favor of either low-dose Xarelto, lovenox, etc rather than aspirin given high DVT risk (11) Hypokalemia: Plan: replaced IV + PO K level now normal mag level normal today as well (12) Hypomagnesemia: Plan: repleted resolved (13) Leg edema, left: Plan: In light of heavy concern she has left-sided breast cancer not unreasonable to check a doppler of LLE to ensure no post-op DVT doppler with NO evidence of DVT Plan irregular heart rhythm on exam - EKG obtained yesterday - NSR with PACs only; no a.fib dispo - rehab post-d/c Admission and Anticipated Discharge Date Admission Date: March 05, 2022 Subjective Patient is awake sitting up in recliner. She states she feels much stronger today compared with yesterday. She denies any abdominal pain, nausea, vomiting, constipation, confusion. She states she was very lethargic but today is feeling much more energetic. She states she had a normal BM today and is tolerating her diet. She does admit to a 5-7 pound weight loss recently that she attributes to her fall and being on the floor without food or nutrition. Review of Systems Constitutional: + fatigue; no fever, no chills, no body aches and no anorexia Eyes: no blind spots, no diplopia and no eye pain Respiratory: no cough, no chest congestion and no dyspnea Cardiovascular: no chest pain, no dyspnea and no edema Gastrointestinal: no abdominal pain, no nausea, no vomiting, no constipation and no diarrhea/loose stools Genitourinary: no dysuria, no urinary frequency and no urinary hesitancy Integumentary: large irregular and firm left lateral breast mass with engorged surrounding skin, no nipple discharge, axilla with Psychiatric: no change in appetite, no irritability and no difficulty concentrating Physical Exam Constitutional: WD/WN, vitals as above Respiratory: normal respiratory effort, lungs clear to auscultation Cardiovascular: irregular with extra beats Gastrointestinal (Abdomen): normal bowel sounds, soft, nontender, no hepatosplenomegaly Results & Data Results & Data ([facility]) Vital Signs (Past 12 Hours) Vital Signs Temp Pulse Resp BP Pulse Ox O2 Del Method 03/10/22 07:10 37.5 C 80 16 150/74 H 97 Room Air Laboratory Results Abnormal lab results 03/10/22 Range/Units 08:12 Potassium 3.3 L (3.5-5.1) mmol/L Chloride 108 H (98-107) mmol/L Carbon Dioxide 34 H (21-32) mmol/L Anion Gap 1 L (3-11) Creatinine 0.46 L (0.6-1.2) mg/dl BUN/Creatinine Ratio 37.0 H (10-20) Glucose 121 H (70-99(Fasting)) mg/dl Calcium 11.3 H (8.5-10.1) mg/dl FINAL DIAGNOSIS Hip, left (left hip hemiarthroplasty): - Intertrabecular hemorrhage consistent with a fracture site is seen. - The cartilaginous cap is thin, but it is intact. - The attached soft tissue is histologically unremarkable and there is no evidence of crystal deposition disease. - No tumor seen. Diagnostic Findings Venous Doppler Study 03/10/22 00:00 US venous doppler LE LT CLINICAL HISTORY: recent L hip Fx ORIF; severe edema; eval DVT TECHNIQUE: Left lower extremity real-time compression venous ultrasound with Color Doppler imaging. Utilizing real-time ultrasonic imaging multiple real time high-resolution ultrasonic images with compression and noncompression maneuvers of the deep venous system in addition to color doppler imaging were performed from the common femoral vein through the proximal calf veins. COMPARISON: None available at the time of this dictation. FINDINGS: Currently there is normal compressibility of the deep venous system from the common femoral vein through the proximal calf veins. Popliteal cyst is seen. Impression: No evidence of deep venous thrombus. ACT 112: Negative or not required by law. Electronically signed by: Tyrone Stewart M.D. 03/10/2022 10:00 AM PG Care Time/CCT Total # of Minutes Spent Total Time Spent with Patient: Total time spent is greater than 50% in coordination of care (as documented) at patient's floor/unit and/or counseling patient: Coding Level of Care Code 37739 Subseq Hosp Care Lvl 3 Diagnoses Fracture of femoral neck, left S72.002A Encounter type: initial encounter Fracture type: closed Rhabdomyolysis T79.6XXA Encounter type: initial encounter Rhabdomyolysis type: traumatic Hypercalcemia E83.52 Breast mass, left N63.20 Dyslipidemia E78.5 Pre-diabetes R73.03 Vitamin D deficiency E55.9 Hypophosphatemia E83.39 Mitral regurgitation I34.0 DVT prophylaxis Z29.9 Hypokalemia E87.6 Hypomagnesemia E83.42 Leg edema, left R60.0 (1) Rhabdomyolysis Encounter type: initial encounter Rhabdomyolysis type: traumatic Qualified Code(s): T79.6XXA - Traumatic ischemia of muscle, initial encounter (2) Fracture of femoral neck, left Encounter type: initial encounter Fracture type: closed Qualified Code(s): S72.002A - Fracture of unspecified part of neck of left femur, initial encounter for closed fracture
[2022-03-10] MEDS ORDERED: Nursing to Pharmacy Communication SCH (16:00)
[2022-03-10] MEDS: SODIUM CHLORIDE 0.9% 1000ML 1,000 ML IV SCH ×2 (16:09→22:30)
[2022-03-10] MEDS: CALCITONIN SALMON 400 UNITS/2 ML SQ SCH (22:29)
[2022-03-11] MEDS: SODIUM CHLORIDE 0.9% 1000ML 1,000 ML IV SCH (06:03)
[2022-03-11] MEDS: POT PHOSPHATE MONOBASIC W/ SOD TAB PO SCH ×2 (08:36→15:01)
[2022-03-11] MEDS: ARTIFICIAL TEARS OP SCH (08:36)
[2022-03-11] MEDS: MULTIVITAMIN TAB PO SCH (08:37)
[2022-03-11] MEDS: ACETAMINOPHEN 500 MG TAB PO SCH ×2 (08:37→15:01)
[2022-03-11] MEDS: ASPIRIN 81 MG ECTAB PO SCH (08:37)
[2022-03-11 09:45] LABS: Hematocrit (blood only) 35.4 % (34.1-44.9); Hemoglobin 11.6 g/dl (12.0-16.0); Mean Corpuscular Hgb Conc 32.8 g/dL (32.0-36.0); Mean Corpuscular Volume 97.8 fL (80.0-100.0); Mean Platelet Volume 10.3 fL (9.4-12.3); Platelet Count 225 K/uL (130-400); RDW Coefficient of Variation 13.2 % (11.5-14.5); RDW Standard Deviation 46.9 fL (36.4-46.3); Red Blood Count 3.62 M/uL (3.93-5.22); White Blood Count 7.26 K/ul (4.8-10.8)
[2022-03-11 10:06] LABS: BUN Creatinine Ratio 38.5 (10-20); Calcium 9.6 mg/dl (8.5-10.1); Creatinine Clr Calc Pharmacy 80.9 ml/min; Est GFR (African American) 107.9 ml/min; Est GFR (Non-African American) 93.1 ml/min; Phosphorus 1.8 mg/dl (2.5-4.9); Potassium 3.1 mmol/L (3.5-5.1)
[2022-03-11] MEDS: CALCITONIN SALMON 400 UNITS/2 ML SQ SCH (10:18)
--- NOTE | 2022-03-11 12:58 | Discharge Summary ---
Date of Service March 11, 2022 Admission HPI Per Admitting Provider 87-year-old female who reportedly shoveled her walker in driveway then walked around to the back of her house to check how much that was on her patio at which time she turned and slipped on the ice and fell striking her left side on the ground. She sustained a left femoral neck fracture. She denies having any presyncopal symptoms or hitting her head. She did have a CT scan of her head which was unremarkable. Family is at the bedside and says that she has been saying something is may be exhibiting some mild confusion which is unusual for her. There is no contusions on her head although a concussion cannot be ruled out if it was a violent fall. She does have a concentrated urine initial urine analysis is not suspicious of a UTI though she does have a white count of 14,000 and a urine culture will be sent In the ER she is negative for viral illnesses she is not anemic she does have mild elevation of her calcium although this is not usual by her history subsequently this may be dehydration or could be possibly causing some of her confusion. We will hydrate her and see what her calcium is on recheck Admission Exam Per Admitting Provider The patient appeared well nourished and normally developed. Vital signs as documented. Head exam is normocephalic atraumatic there is no contusions abrasions Neck is without JVD, thyromegaly, or carotid bruits. Lungs are clear to auscultation, no focal loss of breath sounds Cardiac exam, Rhythm is regular.. No murmurs, rubs or gallops. Abdominal exam reveals normal bowel sounds, soft non tender, no masses Extremities are nonedematous and both pedal pulses are present Left leg is shortened and externally rotated painful to move point tenderness in the left hip Neurologic exam is alert and oriented x3 although family says she is saying some nonsensical statements at times, no focal loss of strength or sensation although affected limb was not tested aggressively Skin is without bruises or rashes Psychologically is without concerns for anxiety or depression. Orientation is intact to my evaluation. Principal Diagnosis fracture left femoral neck (possibly could be osteoporosis related) Discharge Exam Constitutional WD/WN, vitals as above Neck trachea midline, no thyromegaly Respiratory normal respiratory effort, lungs clear to auscultation Cardiovascular irregular with extra beats and 1/6 BRIT Gastrointestinal (Abdomen) normal bowel sounds, soft, nontender, no hepatosplenomegaly Lymphatic + axillary lymphadenopathy large firm irregular lobulated left breast mass with surrounding skin discoloration, no warmth and no open lesions noted Discharge Data Allergies Allergy/AdvReac Type Severity Reaction Status Date / Time No Known Drug Allergies Allergy Verified 03/07/22 07:08 Consultations 03/05/22 12:09 ED Decision to Admit Stat 03/05/22 14:55 Consult Orthopedic Surgery Routine Procedures Performed Operation Date: 03/07/22 07:00 Actual Procedures p Hemiarthroplasty Hip Left(Left) - Sergei Bryant DO Ordered Studies 03/05/22 10:30 CT head/brain wo con Stat Comparison: Comparison is made to CT head 07/10/2012 Findings: Areas of decreased attenuation are present in the periventricular and subcortical white matter bilaterally consistent with small vessel ischemic disease. Generalized cerebral atrophy with commensurate enlargement of the ventricles, sulci, and cisterns is also present. There is no acute intracranial hemorrhage or evidence of acute territorial infarction. No shift of the midline structures, mass effect, or extra-axial abnormalities are shown. Ath erosclerotic calcifications are present in the intracranial segments of the internal carotid arteries. Imaged portions of the paranasal sinuses and mastoid air cells are clear. The orbits appear normal. There are no acute fractures of the calvaria or scalp swelling. Impression: No acute intracranial hemorrhage, no evidence of acute territorial infarction or other acute intracranial disease process. 03/10/22 US venous doppler LE LT Routine CLINICAL HISTORY: recent L hip Fx ORIF; severe edema; eval DVT TECHNIQUE: Left lower extremity real-time compression venous ultrasound with Color Doppler imaging. Utilizing real-time ultrasonic imaging multiple real time high-resolution ultrasonic images with compression and noncompression maneuvers of the deep venous system in addition to color doppler imaging were performed from the common femoral vein through the proximal calf veins. COMPARISON: None available at the time of this dictation. FINDINGS: Currently there is normal compressibility of the deep venous system from the common femoral vein through the proximal calf veins. Popliteal cyst is seen. Impression: No evidence of deep venous thrombus. Hospital Course (1) Fracture of femoral neck, left: Certainly could be osteoporosis related. However, she has a very large breast mass on left worrisome for breast cancer and she could easily have bone mets. During surgery bone was sent for pathology - no tumor seen POD #3 s/p ORIF by Dr Bryant. Appreciate his assistance. 25-OH vit D level >40. (2) Rhabdomyolysis: Peak 1168, now <300. Fluids have been d/c. This was 2nd to fall. (3) Hypercalcemia: Presenting total calcium 11.6 - decreased then increased yesterday up to 11.3 In light of #4 -- hypercalcemia due to cancer (PTH-related peptide driven)? Hold vitamin D supplement. Intact PTH wnl. 25-OH vit D level not toxic range.. Discussed with Nephrology (Dr Hughes who stated this is mild nonPTH mediated hypercalcemia and recommended IVF with NS 0.9, calcitonin and monitoring Ca) He also recommended investigating the left breast mass (see below) Started NSS IVFs at 125 mls/hour Calcitonin 210.4 units SQ Repeat Ca in 4-6 hours decreased to 10.7 Will continue SQ Calcitonin q 12 hours for 24 hours Repeat AM labs today Calcium 9.6 Received last dose of Calcitonin this AM (4) Breast mass, left: Exam is highly suspicious for breast cancer She has not told her family about the mass Patient states she has had this mass for the past 2 years and it has significantly grown in size She denies any other masses, nipple discharge, trauma or injury to the breast I had a long conversation with patient. I encouraged her to discuss this with her family. She told me that she only wants to deal with her hip fracture and recovering at this time. She states, " I know it may be cancerous, but I have lived my life and do not want to have anything done with this at this time. She is aware that her family may want to know this for family history and genetic purposes. She states she will think about telling her family. But at this point she is very adamant that she dose not want me to discuss this with them and she is not interested in having any mammogram, ultrasound, biopsy or any other scans to look for cancer. (5) Dyslipidemia: holding statin due to mild rhabdo, etc resume at d/c today (6) Pre-diabetes: resolved last a1c was 5.3% this summer (7) Vitamin D deficiency: resolved last 25-OH vit D level was 65 this past summer repeat level 40s (8) Hypophosphatemia: since intact PTH level is normal this may be PTH-related peptide driven consider sending PTH-related peptide started K-phos 1 QID phos was improved to 1.9 on last check (9) Mitral regurgitation: as seen on echo 10/2021 (10) DVT prophylaxis: asa 81mg BID for now if she indeed has breast cancer I would be in favor of either low-dose Xarelto, lovenox, etc rather than aspirin given high DVT risk doppler was negative for DVT Patient does not wish to pursue any intervention for the breast mass (11) Hypokalemia: replaced IV + PO K level now normal mag level normal today as well (12) Hypomagnesemia: repleted resolved (13) Leg edema, left: In light of heavy concern she has left-sided breast cancer not unreasonable to check a doppler of LLE to ensure no post-op DVT doppler with NO evidence of DVT Plan irregular heart rhythm on exam - EKG obtained 03/09 - NSR with PACs only; no a.fib dispo - [facility] Total Time Total Time Spent Total Time Spent (In Minutes): 35 Discharge Plan Discharge Items Patient Disposition: Transfer Long-Term Fac Reason For Visit: L FEMORAL NECK FRACTURE, ENCEPHALOPATHY Discharge Diagnosis: left femoral neck fracture hypercalcemia hypophosphatemia Left breast mass Condition on Discharge: Fair Activity: Per Instructions section Activity Comment: to receive PT/OT at [facility] Weightbearing: Full weightbearing Non-emergency contact: Primary Care Provider Call non-emergency contact if: you have any medication questions, your pain is not controlled, your temperature is above 101.5, your wound has increased redness and your wound has increased drainage Follow-up/Referrals: Mason Massey MD [Primary Care Provider] - Diet: Regular Addtl Attending Provider Instructions: You were admitted after a slip and fall on the ice and found to have a left hip/femoral neck fracture. You also had some dehydration and what is called rhabdomyolysis (break down of muscle tissue) secondary to laying on the ground and not able to get up or eat for a prolonged time period. You were evaluated by Dr Bryant and underwent surgery for your fractured femoral neck. During the surgery part of the fractured bone was sent to pathology and revealed no tumor. You also were found to have a very large left breast mass. You stated that you have had this mass for approximately 2 years. You stated that you never sought out medical attention for this and never told yor family of this mass. You were adamant that you did not want your family to know and nothing was relayed to them regarding this mass. You were encouraged to discuss this mass with your family. You also were encouraged to discuss this mass with your primary care physician. You stated that you wanted only to address the fracture and recover from this at this time. You were aware this potentially is cancerous and should have further imaging/biopsies of this. You are being discharged today to [facility] to have rehab and therapy to increase your mobility and strength. You were found to have elevated calcium levels and this could be secondary to underlying cancer. You were treated with Calcitonin and had good response to the Ca levels You were treated with this for 24 hours. You will need to follow up with Dr Bryant in 2 weeks You should also follow up with your primary care physician in a few weeks Pending Studies at Discharge: No Stand-Alone Forms: My [facility] Skilled Items Patient informed of condition?: Yes DNR: No Discharge Level of Care: Skilled Communicable Disease: No Discharge Prognosis: Improving Lines: None Urinary Catheter: No Medications and DC Order Prescriptions: Continued simvastatin 20 mg tablet 20 mg PO HS Qty: 90 3RF cholecalciferol (vitamin D3) 2,000 unit capsule 2,000 unit PO QDD omega-3 acid ethyl esters 1 gram capsule 1 cap PO BID glucosamine sulfate 500 mg capsule 500 mg PO QAM aspirin [Luis A Low Dose Aspirin] 81 mg Tablet,Delayed Release (Dr/Ec) 81 mg PO QAM multivitamin Tablet 1 tab PO QAM TheraTears 0.25 % Dropperette 1 drp OPHTHALMIC (EYE) BID Cholest Off 450 mg Tablet 450 mg PO QDD PreserVision AREDS-2 [id number] [id number]-[id number]-mg Capsule 1 tab PO BID Discharge Orders: Discharge Order (Routine); Ordered 03/11/22 Ordered By: Unique Hyman/Other Patient Handouts: Hypercalcemia Dc Admission Data Admit Date/Time: 03/05/22 12:33 Attending Provider: Gilmar Michele Admit Provider: Brayan Gonzales Primary Care Provider: Mason Massey Other Providers: [place] ; Brayan Gonzales ; Sergei Bryant Other Interventions: Discharge Summary Assessment (RN) Last Done: 03/11/22 10:59 Supervising Physician Co-Signing Physician Notes Patient seen and examined at bedside. During face to face encounter, I performed a physical examination and clinical history. Patient was discharged after sustaining left fracture of femoral neck that was surgically repaired Discharge instructions as above I discussed discharge plan with ALEX Dimas and patient. I reviewed above note and agree with it. Coding Level of Care Code HOSP INP/OBS DISCH >30 MIN Diagnoses Fracture of femoral neck, left S72.002A Encounter type: initial encounter Fracture type: closed Rhabdomyolysis T79.6XXA Encounter type: initial encounter Rhabdomyolysis type: traumatic Hypercalcemia E83.52 Breast mass, left N63.20 Dyslipidemia E78.5 Pre-diabetes R73.03 Vitamin D deficiency E55.9 Hypophosphatemia E83.39 Mitral regurgitation I34.0 DVT prophylaxis Z29.9 Hypokalemia E87.6 Hypomagnesemia E83.42 Leg edema, left R60.0 Time Spent (min) 35
--- NOTE | 2022-03-22 09:06 | Coding Query ---
PRESENT ON ADMISSION QUERY To promote full compliance with coding requirements relating to pateint care, physician participation is requested in all cases of college intern uncertainty. Please assist us with the question(s) below: Please place an X within the parenthesis (x). The following diagnosis listed in this patient's medical record require physician assistance to determine if they were present on admission (POA) or not. Please advise for each diagnosis whether it was present on admission, not present on admission, or if it was clinically undetermined, or ruled-out. 1. ENCEPHALOPATHY - (documented on the Discharge Summary down lower under Discharge Plan and Reason for Visit) ( ) Present On Admission. Please also specify the type of Encephalopathy below: ( ) Likely Encephalopathy specified. Please Specify ( ) Unspecified Encephalopathy ( ) Not Present On Admission. Please also specify the type of Encephalopathy below: ( ) Likely Other Encephalopathy. Please Specify ( ) Unspecified Encephalopathy ( ) Clinically Undetermined. Please also specify the type of Encephalopathy below: ( ) Likely Other Encephalopathy. Please Specify ( ) Unspecified Encephalopathy ( x) Ruled-Out ( ) Other: Please Specify Thank you Dahlia Lujan *Definition of the present on admission (POA)-Present on admission is defined as present at the time the order for inpatient admission occurs. Conditions that develop during an outpatient encounter prior to a written order for inpatient admission (including emergency department, observation, or outpatient surgery) are considered present on admission. JERSON
== END 2022-03-11 16:08 | DRG 522 ==
LOC: ED 09:41 → 3W 12:33 → SUATTDRO 12:33 → 3W 14:45